=== PATIENT | female | born 1940 | race Caucasian/White ===

== ENCOUNTER 2020-08-02 23:37 | Inpatient (IN) | payer MEDICARE, SELFPAY ==
[2020-08-02 23:38] VITALS: BP 142/81; PULSE 108; RESP 18; TEMP 37; O2SAT 94; BMI 30.2
--- NOTE | 2020-08-02 23:45 | CTR_ITS ---
PROCEDURE INFORMATION: Exam: CT Head Without Contrast Exam date and time: 08/02/2020 12:40 AM Age: 80 years old Clinical indication: Altered mental status/memory loss; Additional info: AMS TECHNIQUE: Imaging protocol: Computed tomography of the head without contrast. Radiation optimization: All CT scans at this facility use at least one of these dose optimization techniques: automated exposure control; mA and/or kV adjustment per patient size (includes targeted exams where dose is matched to clinical indication); or iterative reconstruction. COMPARISON: No relevant prior studies available. RADIATION DOSE METRICS: Total DLP (mGy-cm): 857.66 FINDINGS: Brain: Moderate diffuse white matter disease likely reflects chronic microvascular ischemic changes. Cerebral ventricles: No ventriculomegaly. Bones/joints: Unremarkable. No acute fracture. Paranasal sinuses: Right maxillary sinus mild mucosal thickening. Mastoid air cells: Visualized mastoid air cells are well aerated. Soft tissues: Unremarkable. CT/CT head wo con* [id number] IMPRESSION: 1. Negative for intracranial hemorrhage or mass effect. 2. Moderate diffuse white matter disease likely reflects chronic microvascular ischemic changes. 3. Right maxillary sinus mild mucosal thickening. Radiation Dose CTDIVOL = (mGy): DLP = 857.66 (mGy-cm)
--- NOTE | 2020-08-02 23:45 | XRR_ITS ---
PROCEDURE INFORMATION: Exam: XR Chest, 1 View Exam date and time: 08/03/2020 12:04 AM Age: 80 years old Clinical indication: Fever; Prior surgery; Surgery type: Cardiac stents; Additional info: Fever, AMS TECHNIQUE: Imaging protocol: XR of the chest Views: 1 view. COMPARISON: No relevant prior studies available. FINDINGS: Lungs: Prominent interstitial markings with minimal ground-glass airspace opacities may reflect an evolving bronchopneumonia. Pleural space: Unremarkable. No pleural effusion. No pneumothorax. Heart/Mediastinum: Unremarkable. No cardiomegaly. Bones/joints: Unremarkable. XR/XR chest 1V portable [id number] IMPRESSION: Prominent interstitial markings with minimal ground-glass airspace opacities may reflect an evolving bronchopneumonia.
--- NOTE | 2020-08-02 23:46 | ECG_ITS ---
[facility] Test Date: 2020-08-03 Pat Name: Monique Boo Department: Room: Gender: Female Family Engagement Specialist: : 1940 Requested By: Jahaira Maki Order Number: [id number] Reading MD: ALEXANDRA WU Measurements Intervals [place] Rate: 106 P: 31 NC: 186 QRS: -47 QRSD: 109 T: 65 QT: 350 QTc: 467 Interpretive Statements SINUS TACHYCARDIA LEFT AXIS DEVIATION [QRS AXIS < -30] MODERATE VOLTAGE CRITERIA FOR LVH, CONSIDER NORMAL VARIANT [MEETS CRITERIA IN ONE OF: R(aVL), S(V1), R(V5), R(V5/V6)+S(V1)] ANTERIOR MYOCARDIAL INFARCTION , OF INDETERMINATE AGE [40+ ms Q WAVE AND/OR ST/T ABNORMALITY IN V3/V4] No previous ECG available for comparison Electronically Signed On 08-03-2020 18:16:51 GAME TRAPPER by ALEXANDRA WU [id number]
[2020-08-02 23:50] VITALS: BP 131/74; PULSE 107; O2SAT 93
[2020-08-03] VITALS (11 sets, daily range): BP systolic 127–183; BP diastolic 63–109; PULSE 81–110; RESP 17–22; TEMP 37–38.7; O2SAT 91–96
[2020-08-03] MEDS: sodium chloride 0.9% 1,000 ML 999 ML IV (00:08)
[2020-08-03 00:13] LABS: Basophils % 0.3 %; Eosinophils % 0.2 %; Hematocrit 43.2 % (37.0-47.0); Hemoglobin 14.3 g/dL (11.5-15.3); Lymphocytes % 7.3 %; Mean Corpuscular HGB Conc 33.1 g/dL (30.0-36.0); Mean Corpuscular Hemoglobin 30.6 pg (28.0-34.0); Mean Corpuscular Volume 92.5 fL (81-99); Monocytes # 0.7 10^3/uL (0.2-0.9); Monocytes % 5.3 %; Neutrophils # 11.77 10^3/uL (1.8-7.7); Neutrophils % 86.2 %; Nucleated Red Blood Cells % 0 %; Platelet Count 250 10^3/cmm (130-400); Red Blood Count 4.67 10^6/uL (4.1-5.3); Red Cell Distribution Width 12.7 % (12.1-15.1); White Blood Count 13.7 10^3/uL (4.0-10.0)
[2020-08-03 00:20] LABS: INR 1.09 (0.8-1.2)
[2020-08-03 00:25] LABS: Alanine Aminotransferase 31 U/L (0-33); Albumin Level 3.5 g/dL (3.5-5.2); Alkaline Phosphatase 59 IU/L (35-105); Anion Gap 18.1 (5-19); Aspartate Amino Transferase 29 U/L (0-32); Blood Urea Nitrogen 14 mg/dL (8-23); Calcium 9.5 mg/dL (8.5-10.5); Carbon Dioxide 22 mmol/L (22-29); Chloride 96 mmol/L (98-107); Creatinine Clr Calc Pharmacy 51.3518; Globulin 3.9 g/dL (1.3-4.6); Glucose 169 mg/dL (65-115); Lactate (Lactic Acid level) 1.6 mmol/L (0.5-2.2); Osmolality Calculated 278 mOsm/kg (285-295); Potassium 4.1 mmol/L (3.5-5.1); Sodium 132 mmol/L (136-145); Total Protein 7.4 g/dL (6.6-8.7)
--- NOTE | 2020-08-03 00:28 | W.ED.AMS ---
HPI - Altered Mental Status General: Chief Complaint: Altered Mental Status Stated Complaint: WEAKNESS AND CONFUSION Time Seen by Provider: 08/02/20 23:38 Source: EMS Mode of arrival: EMS Limitations: altered mental status History of Present Illness: HPI narrative: 80-year-old female who has a history of dementia that family states became increasingly altered and was unresponsive tonight. Patient here is only able to tell me her name and is quite confused. Patient does have some erythema and warmth to her left lateral leg. This is new today per family. She is afebrile. No known injuries. No focal weaknesses. Review of Systems General: Reports: ROS unobtainable due to mental status Physical Exam Const: COMMON NORMALS: negative for patient oriented x3 EXAM LIMITATIONS: altered mental status GENERAL APPEARANCE: ill appearing HENMT: COMMON NORMALS: normocephalic and atraumatic HEAD & SCALP: normocephalic and atraumatic Eye: COMMON NORMALS: Equal, round and reactive pupils present and EOMs intact bilaterally PUPIL: Yes Equal, round and reactive pupils present Neck/C-Spine: COMMON NORMALS: full ROM and supple Chest: COMMONS NORMALS: normal inspection of the chest and normal palpation of entire chest wall Resp: COMMON NORMALS: normal respiratory effort, No retractions, No use of accessory muscles and clear to auscultation bilaterally AUSCULTATION: clear to auscultation bilaterally Cardio: COMMON NORMALS: regular rate, regular rhythm and No murmurs present (Cardio) RATE: regular rate RHYTHM: regular rhythm GI: COMMON NORMALS: Normal to inspection, nondistended, normoactive bowel sounds present, Soft to palpation, non-tender and no masses PALPATION: Yes Soft to palpation Extremity: COMMON NORMALS: normal to inspection and full ROM NARRATIVE EXTREMITY EXAM: Cellulitis noted to the left lateral upper leg Neuro: COMMON NORMALS: moves all extremities and no focal motor deficits; negative for patient oriented x3 Psych: COMMON NORMALS: negative for mental status grossly normal Skin: COMMON NORMALS: no rashes or lesions noted and no wounds GENERAL SKIN EXAM: no rashes or lesions noted Course Vital Signs: Vital signs: Vital Signs Temperature 98.6 F 08/02/20 23:38 Pulse Rate 92 08/03/20 02:09 Respiratory Rate 18 08/03/20 02:09 Blood Pressure 152/76 08/03/20 02:09 Pulse Oximetry 94 08/03/20 02:09 MDM - Altered Mental Status MDM Narrative: Medical decision making narrative: Josselin presents here with altered mental status acutely. She has no signs of a CVA and her head CT is normal. Patient's urinalysis is normal. She does have a mildly elevated white count along with a cellulitis to her left leg likely causing her elevated white count. I believe this infection is likely causing her altered mental status as well. Patient started IV antibiotics and I spoke to hospitalist will admit. Lab Data: Labs: Lab Results 08/02/20 08/02/20 08/02/20 Range/Units 23:59 23:59 23:59 WBC 13.7 H (4.0-10.0) 10^3/ uL RBC 4.67 (4.1-5.3) 10^6/u L Hgb 14.3 (11.5-15.3) g/dL Hct 43.2 (37.0-47.0) % MCV 92.5 (81-99) fL MCH 30.6 (28.0-34.0) pg MCHC 33.1 (30.0-36.0) g/dL RDW 12.7 (12.1-15.1) % Plt Count 250 (130-400) 10^3/c mm MPV 9.0 (7.4-10.4) fL Neut % (Auto) 86.2 % Lymph % (Auto) 7.3 % Moffat % (Auto) 5.3 % Eos % (Auto) 0.2 % Baso % (Auto) 0.3 % Neut # (Auto) 11.77 H (1.8-7.7) 10^3/u L Lymph # (Auto) 1.0 (0.8-4.8) 10^3/u L Moffat # (Auto) 0.7 (0.2-0.9) 10^3/u L Eos # (Auto) 0.0 (0.0-0.8) 10^3/u L Baso # (Auto) 0.0 (0.0-0.1) 10^3/u L Nucleated RBC % (a uto) 0 % Nucleated RBCs # 0.0 /100WBC PT 14.50 (12.1-14.9) SECO NDS INR 1.09 (0.8-1.2) Sodium 132 L (136-145) mmol/L Potassium 4.1 (3.5-5.1) mmol/L Chloride 96 L (98-107) mmol/L Carbon Dioxide 22 (22-29) mmol/L Anion Gap 18.1 (5-19) BUN 14 (8-23) mg/dL Creatinine 0.7 (0.5-0.9) mg/dL GFR Calculation Not Reportable Glucose 169 H (65-115) mg/dL Calculated Osmolal ity 278 L (285-295) mOsm/k g Lactate (0.5-2.2) mmol/L Calcium 9.5 (8.5-10.5) mg/dL Total Bilirubin 1.0 (0.15-1.2) mg/dL AST 29 (0-32) U/L ALT 31 (0-33) U/L Alkaline Phosphata se 59 (35-105) IU/L Total Protein 7.4 (6.6-8.7) g/dL Albumin 3.5 (3.5-5.2) g/dL Globulin 3.9 (1.3-4.6) g/dL Urine Color (Yellow) Urine Appearance (CLEAR) Urine pH (5-7) Ur Specific Gravit y (1.005-1.030) Urine Protein (Negative) Urine Glucose (UA) (Normal) Urine Ketones (Negative) Urine Blood (Negative) Urine Nitrate (Negative) Urine Bilirubin (Negative) Urine Urobilinogen (Negative) mg/dL Ur Leukocyte Johanne ase (Negative) Urine RBC (0-2) /hpf Urine WBC (0-5) /hpf Ur Squamous Epith Cells (0-5) /hpf Amorphous Sediment Urine Bacteria (NONE) /hpf Urine Mucus /hpf 08/02/20 08/03/20 Range/Units 23:59 00:37 WBC (4.0-10.0) 10^3/ uL RBC (4.1-5.3) 10^6/u L Hgb (11.5-15.3) g/dL Hct (37.0-47.0) % MCV (81-99) fL MCH (28.0-34.0) pg MCHC (30.0-36.0) g/dL RDW (12.1-15.1) % Plt Count (130-400) 10^3/c mm MPV (7.4-10.4) fL Neut % (Auto) % Lymph % (Auto) % Moffat % (Auto) % Eos % (Auto) % Baso % (Auto) % Neut # (Auto) (1.8-7.7) 10^3/u L Lymph # (Auto) (0.8-4.8) 10^3/u L Moffat # (Auto) (0.2-0.9) 10^3/u L Eos # (Auto) (0.0-0.8) 10^3/u L Baso # (Auto) (0.0-0.1) 10^3/u L Nucleated RBC % (a uto) % Nucleated RBCs # /100WBC PT (12.1-14.9) SECO NDS INR (0.8-1.2) Sodium (136-145) mmol/L Potassium (3.5-5.1) mmol/L Chloride (98-107) mmol/L Carbon Dioxide (22-29) mmol/L Anion Gap (5-19) BUN (8-23) mg/dL Creatinine (0.5-0.9) mg/dL GFR Calculation Glucose (65-115) mg/dL Calculated Osmolal ity (285-295) mOsm/k g Lactate 1.6 (0.5-2.2) mmol/L Calcium (8.5-10.5) mg/dL Total Bilirubin (0.15-1.2) mg/dL AST (0-32) U/L ALT (0-33) U/L Alkaline Phosphata se (35-105) IU/L Total Protein (6.6-8.7) g/dL Albumin (3.5-5.2) g/dL Globulin (1.3-4.6) g/dL Urine Color Yellow (Yellow) Urine Appearance Clear (CLEAR) Urine pH 5 (5-7) Ur Specific Gravit y 1.020 (1.005-1.030) Urine Protein Trace (Negative) Urine Glucose (UA) Norm (Normal) Urine Ketones 1+ H (Negative) Urine Blood Neg (Negative) Urine Nitrate Negative (Negative) Urine Bilirubin 1+ H (Negative) Urine Urobilinogen 1 H (Negative) mg/dL Ur Leukocyte Johanne ase Negative (Negative) Urine RBC 0-4 H (0-2) /hpf Urine WBC 0-4 H (0-5) /hpf Ur Squamous Epith Cells 0-4 H (0-5) /hpf Amorphous Sediment Not Reportable Urine Bacteria Trace (NONE) /hpf Urine Mucus 2+ /hpf Imaging Data^: CXR: Attestation: I personally reviewed and interpreted this imaging study as follows: My impression: no acute abnormality CT Head: Attestation: I personally reviewed and interpreted this imaging study as follows: Radiologist's impression: [facility] [address] [place] [address] CT Scan Report Signed Patient: Monique Boo Unit #: [id number] : 1940 Age/Sex: 80 / F ADM Date: 08/02/20 Loc: ER Room/Bed: Attending Dr: Ordering Provider/Ordering MD: Jahaira Maki MD Date of Service: 08/02/20 Procedure(s): CT head wo con* [id number] Accession Number(s): [id number] Report Number: [id number] PROCEDURE INFORMATION: Exam: CT Head Without Contrast Exam date and time: 08/02/2020 12:40 AM Age: 80 years old Clinical indication: Altered mental status/memory loss; Additional info: AMS TECHNIQUE: Imaging protocol: Computed tomography of the head without contrast. Radiation optimization: All CT scans at this facility use at least one of these dose optimization techniques: automated exposure control; mA and/or kV adjustment per patient size (includes targeted exams where dose is matched to clinical indication); or iterative reconstruction. COMPARISON: No relevant prior studies available. RADIATION DOSE METRICS: Total DLP (mGy-cm): 857.66 FINDINGS: Brain: Moderate diffuse white matter disease likely reflects chronic microvascular ischemic changes. Cerebral ventricles: No ventriculomegaly. Bones/joints: Unremarkable. No acute fracture. Paranasal sinuses: Right maxillary sinus mild mucosal thickening. Mastoid air cells: Visualized mastoid air cells are well aerated. Soft tissues: Unremarkable. CT/CT head wo con* [id number] IMPRESSION: 1. Negative for intracranial hemorrhage or mass effect. 2. Moderate diffuse white matter disease likely reflects chronic microvascular ischemic changes. 3. Right maxillary sinus mild mucosal thickening. EKG Data^: EKG 1: Attestation: I personally reviewed and interpreted this EKG as follows: EKG interpretation date: 08/03/20 EKG interpretation time: 00:02 Interpretation: sinus tach hr [address] or t wave abnormalities qrs 109 qtc 412 Discharge Plan Discharge Patient Disposition: Admitted As Inpatient Clinical Impression: Altered mental status, Cellulitis Condition: Stable Coding Level of Care Code ED Fur Vault Attendant for Chg Fwd Exam Comprehensive
[2020-08-03 01:31] LABS: Urine Appearance Clear (CLEAR); Urine Color Yellow (Yellow); pH Urine 5 (5-7)
[2020-08-03 01:32] LABS: Add Urine Microscopic? YES; Bilirubin Urine 1+ (Negative); Blood Urine Neg (Negative); Glucose Urine UA Norm (Normal); Ketones Urine 1+ (Negative); Leukocyte Esterase Urine Negative (Negative); Nitrate Urine Negative (Negative); Protein Urine Trace (Negative); Urobilinogen Urine 1 mg/dL (Negative)
[2020-08-03 01:39] LABS: RBC Urine 0-4 /hpf (0-2); Squamous Epithelial Cell Urine 0-4 /hpf (0-5); WBC Urine 0-4 /hpf (0-5)
[2020-08-03 01:40] LABS: Add Urine Culture? No; Bacteria Urine TRACE /hpf; Mucus Urine 2+ /hpf
[2020-08-03] MEDS: vancomycin 1,000 MG in sodium chloride 0.9% 250 ML 250 MG IV (01:45)
--- NOTE | 2020-08-03 02:49 | CTR_ITS ---
PROCEDURE INFORMATION: Exam: CT Left Lower Extremity With Contrast; Thigh Exam date and time: 08/03/2020 3:21 AM Age: 80 years old Clinical indication: Thigh; Left; Patient HX: Cellulitis to lateral aspect of hip and entire femur. TECHNIQUE: Imaging protocol: CT of the Left lower extremity with intravenous contrast was performed. Exam focused on the thigh. Radiation optimization: All CT scans at this facility use at least one of these dose optimization techniques: automated exposure control; mA and/or kV adjustment per patient size (includes targeted exams where dose is matched to clinical indication); or iterative reconstruction. Contrast material: OMNI 300; Contrast volume: 95 ml; Contrast route: INTRAVENOUS (IV); COMPARISON: No relevant prior studies available. RADIATION DOSE METRICS: Total DLP (mGy-cm): 1241.4 FINDINGS: Bones/joints: Normal. No acute fracture or dislocation. Soft tissues: Strandy and hazy low attenuation is seen in the subcutaneous and fascia the left thigh posterolaterally, findings that may represent edematous or inflammatory changes. Cellulitis cannot be entirely excluded. CT/CT lower leg LT w con [id number] IMPRESSION: Diffuse hazy in strandy opacities are seen in the subcutaneous fat and fascia of the left thigh posterolaterally, findings could represent edematous or inflammatory changes. Cellulitis cannot be excluded. Radiation Dose CTDIVOL = (mGy): DLP = 1241.4 (mGy-cm)
[2020-08-03] MEDS: iohexol 300 mg/mL 100 mL Btl IV (03:46)
--- NOTE | 2020-08-03 04:14 | PM.HP ---
Providers/Chief Complaint Admitting Physician: Morelia Patel MD Primary Care Provider: Gretchen Sanon MD Chief Complaint: WEAKNESS AND CONFUSION History of Present Illness Monique Boo is a 80 year old female who carries history of coronary disease, hypertension and diabetes presented today with chief complaint of altered mental status. 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 Her daughter has not noticed any vomiting, fever, loss of consciousness or seizure-like activities. She was brought to the hospital for further evaluation 1 today she noticed rash on her left thigh. EMS was called. En route to the hospital she had 1 episode of emesis, she was saturating well, afebrile dynamically stable, she has been constipated for last few days as well. Diagnostics in the ER revealed sepsis, criteria met with tachycardia and leukocytosis, her chest x-ray showing evolving pneumonia, left leg cellulitis, CT of lower extremity did not reveal any gas gangrene or necrotizing fasciitis. As per the daughter this skin rash just developed today it was not present yesterday, she also has a skin abrasion around right sacral area, it is not an open wound, normal UA Review of Systems Const: Denies: fever(s) or chills Eyes: Denies: change in vision ENMT: Denies: throat pain Card: Denies: chest pain Resp: Denies: dyspnea GI: Denies: abdominal pain : Denies: flank pain Musc: Denies: neck pain Skin/Breast: Reports: new lesions Neuro: Reports: confusion and difficulty communicating thoughts Psych: Reports: memory loss; Denies: anxiety Endo: Denies: polyuria Mat/Lymph: Denies: easy bruising All/Imm: Denies: urticaria Medications/Allergies Home Medications Medication Instructions Recorded Confirmed Last Taken Type atorvastatin 08/03/20 Unknown History clopidogrel 08/03/20 08/03/20 Unknown History ergocalciferol (vitamin D2) 08/03/20 08/03/20 Unknown History [Vitamin D2] glipizide mg 08/03/20 08/03/20 Unknown History levetiracetam PO 08/03/20 08/03/20 Unknown History levothyroxine [Euthyrox] 08/03/20 08/03/20 Unknown History losartan 08/03/20 08/03/20 Unknown History metformin mg 08/03/20 Unknown History metformin mg 08/03/20 08/03/20 Unknown History metoprolol tartrate 08/03/20 08/03/20 Unknown History mirtazapine mg 08/03/20 08/03/20 Unknown History sitagliptin [Januvia] mg 08/03/20 08/03/20 Unknown History sitagliptin [Januvia] mg 08/03/20 08/03/20 Unknown History PFSH Acute PFSH: Medical History (Updated 08/03/20 @ 04:48 by Morelia Patel MD) Coronary artery disease Diabetes Dyslipidemia Hypertension Seizure disorder Surgical History (Updated 08/03/20 @ 04:31 by Morelia Patel MD) H/O thyroidectomy H/O: hysterectomy Stented coronary artery Family History (Updated 08/03/20 @ 04:31 by Morelia Patel MD) Other Family history non-contributory Social History (Updated 08/03/20 @ 04:32 by Morelia Patel MD) Smoking and tobacco status: never smoked Alcohol intake: never Substance/Drug Use: never Household members: family Housing: House Vitals/I&O/Wt Last Vital Signs Temp 98.6 F 08/02/20 23:38 Pulse 109 H 08/03/20 04:06 Resp 22 H 08/03/20 03:45 BP 127/109 08/03/20 04:06 Pulse Ox 95 08/03/20 04:06 08/02/20 08/02/20 08/03/20 14:59 22:59 06:59 Intake Total 1250 / 1250 Balance 1250 / 1250 Weight last 48 hrs Weight 74.843 kg Physical Exam Narrative: EXAM NARRATIVE: Pleasant elderly female She responded very well to my verbal commands, she is verbally redirectable She is able to answer my questions in simple answers mostly yes and no No gaze preference No focal deficit she is able to move her upper and lower extremities without any limitations grade 3/5 strength grossly no acute neurological deficit noted S1, S2 sinus tachycardia No active signs of heart failure Ventral hernia, abdomen soft, distended central obesity distended bowel sounds present Lower extremity no edema gangrene ulcer She is awake but only oriented to herself Skin abrasion of right buttocks area without sacral ulcer Hyperemia with cellulitis around her waistline extending up to left thigh way up to her knee, no active purulent drainage, erythematous, tender skin Bilateral feet without any active skin ulcer or gangrene No herpes vesicles noted Data : 08/02/20 23:59 08/02/20 23:59 Micro: Microbiology 08/02/20 01:32 Blood Culture - Preliminary Blood SPECIMEN COLLECTED 08/02/20 01:32 Blood Culture - Preliminary Blood SPECIMEN COLLECTED A&P Assessment and plan (1) Altered mental status: Status: Acute (2) Cellulitis: Status: Acute Additional A&P Information Nonpurulent cellulitis Concern for progressive cellulitis, skin rash which has progressed in a short amount of time extending from her baseline to left thigh went up to her left knee No active purulent drainage, patient has been afebrile, I do not see any open wound around sacral area however has right buttocks skin abrasion with mild bleeding, Considering history of diabetes I will start her on vancomycin and Zosyn CT of leg requested to rule out gas gangrene and necrotizing fasciitis however no crepitation on clinical exam Altered mental status Daughter is endorsing that 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 for which she is taking Keppra I would check her Keppra level before loading her with antiepileptic medication At the time my evaluation patient was able to follow my commands verbally, however she was only oriented to herself, she was able to tell me her month of , she was able to sit up on verbal command, squeeze my fingers and hold her legs in the air for 5 seconds, I do not suspect meningitis at this point, suspicion for status epileptiform nonconvulsive seizures, will give her Ativan 0.5 mg IV push, if her mentation deteriorates we will transfer her to ICU and request EEG Sepsis secondary to cellulitis Criteria met with tachycardia and leukocytosis Lactic acid 1.6, Currently on vancomycin and Zosyn along maintenance fluid rate Type 2 diabetes: I will keep her on low-dose insulin sliding Hold Metformin Hypertension: Continue losartan Hypothyroidism: Check TSH, continue levothyroxine 175 mcg Goals of care discussed with daughter: Patient is DNR/DNI Cardiac/consistent carb diet DVT prophylaxis Lovenox Attestations Medical Necessity Statement*: Anticipating stay in the hospital course more than 2 midnights continued IV antibiotics for sepsis secondary to cellulitis, check Keppra level rule out nonepileptiform seizure activity Time Spent in Patient Care: (>than 50% of time spent in counselling and/or direct pt care on unit). 50mins Coding Level of Care Code Acute Sales Consulting Director for Dulceg Fwd Diagnoses Altered mental status R41.82 Cellulitis L03.90
--- NOTE | 2020-08-03 05:30 | PC.PHAR ---
Vancomycin is dosed at 1500mg IVPB every 24 hours to produce a predicted trough level of 15.03 (population based pharmacokinetic analysis). A trough level has been ordered from the lab to be obtained before the fourth dose to confirm and adjust if needed. The Zosyn is dosed at 3.375gm IVPB every 8 hours on basis of the creatinine clearance of 51.3518.
[2020-08-03] MEDS: sodium chloride 0.9% 1,000 ML 75 ML IV ×2 (05:34→18:28)
[2020-08-03] MEDS: LORazepam 2 mg/mL INJ 1 mL 0.5 MG IVP (05:35)
[2020-08-03] MEDS: enoxaparin 40 mg/0.4 mL Syringe SUBCUT (05:35)
[2020-08-03] MEDS: levothyroxine 75 mcg Tablet 150 MCG PO (05:35)
[2020-08-03] MEDS: piperacillin-tazobactam 3.375 GM in sodium chloride 0.9% (plus) 50 ML IV ×3 (05:46→21:04)
[2020-08-03 05:57] LABS: Procalcitonin 0.08 ng/mL (0-0.5); Prolactin 19.08 ng/mL (4.8-23.3)
[2020-08-03 06:55] LABS: Glucose Point of Care 117 mg/dL (70-110)
--- NOTE | 2020-08-03 08:55 | USR_ITS ---
PROCEDURE INFORMATION: Exam: US Duplex Left Lower Extremity Veins, Limited Exam date and time: 08/03/2020 11:24 AM Age: 80 years old Clinical indication: Pain; Leg, upper; Left; Additional info: Assess for vte TECHNIQUE: Imaging protocol: Real-time Duplex ultrasound of the Left Lower Extremity with 2-D cai scale, color Doppler flow and spectral waveform analysis with image documentation. Limited exam focused on the left lower extremity veins. COMPARISON: No relevant prior studies available. FINDINGS: Left deep veins: Unremarkable. The common femoral, femoral, proximal profunda femoral, popliteal, and visualized calf veins are patent without thrombus. Normal Doppler waveforms. Normal compressibility and/or augmentation response. Left superficial veins: Unremarkable. Saphenofemoral junction is patent without thrombus. Soft tissues: Mild subcutaneous edema noted in the calf and popliteal area. No discrete fluid collection. US/CV venous duplex [facility] [id number] IMPRESSION: No evidence of deep vein thrombosis.
[2020-08-03] MEDS: metoprolol tartrate 25 mg Tablet PO ×2 (09:22→21:00)
[2020-08-03] MEDS: clopidogrel 75 mg Tablet PO (09:22)
[2020-08-03] MEDS: lisinopril 10 mg Tablet PO (09:22)
[2020-08-03 10:53] LABS: SARS Covid-2 Antigen Negative (Negative)
[2020-08-03 11:03] LABS: Glucose Point of Care 190 mg/dL (70-110)
[2020-08-03 16:55] LABS: Glucose Point of Care 139 mg/dL (70-110)
--- NOTE | 2020-08-03 19:07 | PM.PN ---
Subjective Subjective: Interval history: She is awake, cooperative, appears comfortable. Denies any discomfort, although he is also not oriented. When asked about her location says she is at school. Does not remember what year it is currently. Denies any pain or any complaints. Vitals/I&O/Wt Last Vital Signs Temp 100.3 F H 08/03/20 16:00 Pulse 82 08/03/20 16:00 Resp 17 08/03/20 16:00 BP 157/73 08/03/20 16:00 Pulse Ox 94 08/03/20 16:00 08/03/20 08/03/20 08/03/20 06:59 14:59 22:59 Intake Total 1250 / 1250 410 / 410 967.5 / 1377.5 Balance 1250 / 1250 410 / 410 967.5 / 1377.5 Weight last 48 hrs Weight 74.843 kg Physical Exam Const: COMMON NORMALS: no acute distress and alert; negative for patient oriented x3 GENERAL APPEARANCE: cooperative ORIENTATION/CONSCIOUSNESS: Yes awake OTHER: Calm HENMT: COMMON NORMALS: oropharynx normal Neck/C-Spine: COMMON NORMALS: no JVD Resp: COMMON NORMALS: normal respiratory effort and clear to auscultation bilaterally AUSCULTATION: clear to auscultation bilaterally Cardio: COMMON NORMALS: no JVD, regular rhythm, S1 normal heart sound present, S2 normal heart sound present and No murmurs present (Cardio) RHYTHM: regular rhythm HEART SOUNDS: S1 normal heart sound present and S2 normal heart sound present GI: COMMON NORMALS: Normal to inspection, nondistended, normoactive bowel sounds present, Soft to palpation and non-tender PALPATION: Yes Soft to palpation Extremity: COMMON NORMALS: no joint enlargement and no pedal edema OTHER: Erythema and soft tissue edema of large part of posterior left thigh Neuro: COMMON NORMALS: moves all extremities; negative for patient oriented x3 SENSORIUM/ORIENTATION: Yes alert Skin: COMMON NORMALS: no rashes or lesions noted GENERAL SKIN EXAM: no rashes or lesions noted Data : 08/02/20 23:59 08/02/20 23:59 Micro: Microbiology 08/02/20 01:32 Blood Culture - Preliminary Blood SPECIMEN COLLECTED 08/02/20 01:32 Blood Culture - Preliminary Blood SPECIMEN COLLECTED A&P Assessment and plan (1) Altered mental status: Suspected septic encephalopathy secondary to cellulitis, sepsis. Treat infection. Supportive care. Status: Acute (2) Cellulitis: Cellulitis of left thigh, with sepsis, leukocytosis, fever. Acute encephalopathy. Continue Zosyn and vancomycin. Assist with duplex ultrasound of left leg, without finding of DVT. Status: Acute (3) Pneumonia: Noted prominent interstitial markings with minimal groundglass airspace opacities, possibly reflecting evolving bronchopneumonia. Rapid COVID-19 negative. Send out PCR pending. Maintain isolation. Saturating well on room air. We will discontinue IV fluid for now, attempt to avoid fluid overload. Status: Acute Additional A&P Information Sepsis, fever: Secondary to cellulitis, pneumonia, possible sepsis. As above. Assess for COVID-19. Right buttocks skin abrasion with mild bleeding, History of seizures: Keppra level pending. She is awake, alert, cooperative, but confused. No seizure-like activity noted at this time. Will treat underlying infections as above. Monitor. Type 2 diabetes: I will keep her on low-dose insulin sliding Hold Metformin Hypertension: Continue losartan Hypothyroidism: continue levothyroxine 175 mcg Attestations Medical Necessity Statement*: Continue admission for assessment management of sepsis, septic encephalopathy, cellulitis, pneumonia.. 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
[2020-08-03 20:52] LABS: Glucose Point of Care 127 mg/dL (70-110)
[2020-08-03] MEDS: acetaminophen 325 mg Tablet PO (20:59)
[2020-08-03] MEDS: atorvastatin 40 mg Tablet 20 MG PO (21:00)
[2020-08-04] VITALS (7 sets, daily range): BP systolic 125–182; BP diastolic 62–86; PULSE 55–109; RESP 16–20; TEMP 36.4–37.1; O2SAT 93–96
[2020-08-04] MEDS: vancomycin 1,500 MG/300 ML PIGGYBACK 150 MG IV (01:24)
[2020-08-04] MEDS: piperacillin-tazobactam 3.375 GM in sodium chloride 0.9% (plus) 50 ML IV ×3 (04:13→21:25)
[2020-08-04] MEDS: enoxaparin 40 mg/0.4 mL Syringe SUBCUT (04:14)
[2020-08-04] MEDS: levothyroxine 75 mcg Tablet 150 MCG PO (05:27)
[2020-08-04 05:47] LABS: Basophils % 0.4 %; Eosinophils # 0.3 10^3/uL (0.0-0.8); Eosinophils % 3.6 %; Hematocrit 38.3 % (37.0-47.0); Hemoglobin 12.7 g/dL (11.5-15.3); Lymphocytes # 1.3 10^3/uL (0.8-4.8); Lymphocytes % 13.7 %; Mean Corpuscular HGB Conc 33.2 g/dL (30.0-36.0); Mean Corpuscular Hemoglobin 30.9 pg (28.0-34.0); Mean Corpuscular Volume 93.2 fL (81-99); Mean Platelet Volume 9.5 fL (7.4-10.4); Monocytes # 0.7 10^3/uL (0.2-0.9); Neutrophils # 6.72 10^3/uL (1.8-7.7); Neutrophils % 73.6 %; Nucleated Red Blood Cells % 0 %; Platelet Count 227 10^3/cmm (130-400); Red Blood Count 4.11 10^6/uL (4.1-5.3); Red Cell Distribution Width 12.8 % (12.1-15.1); White Blood Count 9.1 10^3/uL (4.0-10.0)
[2020-08-04 06:00] LABS: Anion Gap 11.6 (5-19); Blood Urea Nitrogen 11 mg/dL (8-23); Carbon Dioxide 25 mmol/L (22-29); Chloride 98 mmol/L (98-107); Creatinine Clr Calc Pharmacy 51.3518; Glucose 125 mg/dL (65-115); Osmolality Calculated 273 mOsm/kg (285-295); Potassium 3.6 mmol/L (3.5-5.1); Sodium 131 mmol/L (136-145)
[2020-08-04 06:29] LABS: Glucose Point of Care 117 mg/dL (70-110)
[2020-08-04] MEDS: lisinopril 10 mg Tablet PO ×2 (08:28→15:55)
[2020-08-04] MEDS: metoprolol tartrate 25 mg Tablet PO ×2 (08:28→21:26)
[2020-08-04] MEDS: clopidogrel 75 mg Tablet PO (08:28)
[2020-08-04 10:39] LABS: Glucose Point of Care 175 mg/dL (70-110)
--- NOTE | 2020-08-04 15:17 | P.PN_ITS ---
Subjective Subjective: Interval history: She is awake and alert, pleasant and coopearative, although with baseline dementia is not oriented to place or year, and is unsure why she is currently in the hospital. She denies any pain or discomfort, however, denies any pain in her left thigh (apart from the palpation tenderness over the skin during examination). Denies any shortness of breath. Denies chest pain or pressure. Has no abdominal discomfort or any other complaints. Vitals/I&O/Wt Last Vital Signs Temp 97.5 F L 08/04/20 12:00 Pulse 76 08/04/20 12:00 Resp 16 08/04/20 12:00 BP 161/77 08/04/20 12:00 Pulse Ox 94 08/04/20 12:00 08/04/20 08/04/20 08/04/20 06:59 14:59 22:59 Intake Total 50 / 1477.5 530 / 530 Balance 50 / 1477.5 530 / 530 Weight last 48 hrs Weight 74.843 kg Physical Exam Const: COMMON NORMALS: no acute distress and alert; negative for patient oriented x3 GENERAL APPEARANCE: cooperative ORIENTATION/CONSCIOUSNESS: Yes awake OTHER: Calm. She is pleasant, conversant. HENMT: COMMON NORMALS: oropharynx normal Neck/C-Spine: COMMON NORMALS: no JVD Resp: COMMON NORMALS: normal respiratory effort and clear to auscultation bilaterally AUSCULTATION: clear to auscultation bilaterally Cardio: COMMON NORMALS: no JVD, regular rhythm, S1 normal heart sound present, S2 normal heart sound present and No murmurs present (Cardio) RHYTHM: regular rhythm HEART SOUNDS: S1 normal heart sound present and S2 normal heart sound present GI: COMMON NORMALS: Normal to inspection, nondistended, normoactive bowel sounds present, Soft to palpation and non-tender PALPATION: Yes Soft to palpation Extremity: COMMON NORMALS: no joint enlargement and no pedal edema OTHER: Erythema and soft tissue edema of large part of posterior left thigh with improvement compared to yesterday. Tender on palpation. Neuro: COMMON NORMALS: moves all extremities; negative for patient oriented x3 SENSORIUM/ORIENTATION: Yes alert Skin: COMMON NORMALS: no rashes or lesions noted GENERAL SKIN EXAM: no rashes or lesions noted Data : 08/04/20 05:13 08/04/20 05:13 Micro: Microbiology 08/03/20 00:37 Urine Culture - Preliminary Urine Catheterized 08/02/20 01:32 Blood Culture - Preliminary Blood NEGATIVE TO DATE 08/02/20 01:32 Blood Culture - Preliminary Blood NEGATIVE TO DATE A&P Assessment and plan (1) Altered mental status: This appears to have resolved. She is not oriented to place or year, however, I discussed today with her daughter, and this appears to be her baseline at home. She does have underlying dementia. She denies any visual or auditory hallucination. Suspected septic encephalopathy secondary to cellulitis, sepsis. Treat infection. Supportive care. Status: Acute (2) Cellulitis: Quite large area of cellulitis over posterior left thigh. Continue treatment with antibiotics IV at this time, if continue to show improvement, may transition to oral antibiotic and return home possibly within the next 1-2 days. Last fever last night around 11 PM. Sepsis otherwise appears to be resolving. Duplex ultrasound of left leg, without finding of DVT. Status: Acute (3) Pneumonia: Noted prominent interstitial markings with minimal groundglass airspace opacities, possibly reflecting evolving bronchopneumonia. Rapid COVID-19 negative. PCR testing is pending. Maintain isolation. Her oxygenation has been good on room air. She denies any shortness of breath or difficulties breathing. With possible bacterial pneumonia at this time continue antibiotic treatment. Follow blood cultures. Avoid fluid overload. Status: Acute Additional A&P Information Sepsis, fever: Resolving. Secondary to cellulitis, pneumonia. As above. Assess for COVID-19. Right buttocks skin abrasion with mild bleeding, History of seizures: Keppra level pending. She is awake, alert, cooperative, but confused. No seizure-like activity noted at this time. Will treat u nderlying infections as above. Monitor. Type 2 diabetes: low-dose insulin sliding scale Hold Metformin Hypertension: Blood pressure up as high as 182/84 today. Continue lisinopril. Will give extra dose today. Monitor blood pressures. Will not increase beta- ghada for now, noted episode of heart rate 55 bpm last night. Hypothyroidism: continue levothyroxine 175 mcg Attestations Medical Necessity Statement*: Continue admission for assessment of improving sepsis due to cellulitis, pneumonia, assessment for COVID-19, optimization of hypertension, with possible discharge home within the next 1-2 days. 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
--- NOTE | 2020-08-04 15:38 | PC.NURSE ---
Notified Dr Kamara that patient's manual blood pressure is 182/84.
--- NOTE | 2020-08-04 15:48 | PC.NURSE ---
Rcvd message from Dr Kamara that he will put orders in for blood pressure medications.
[2020-08-04 16:39] LABS: Glucose Point of Care 140 mg/dL (70-110)
--- NOTE | 2020-08-04 17:28 | PC.NURSE ---
notified Dr Kamara that patient has open area to buttock and rash to thighs and legs.
[2020-08-04 20:13] LABS: Glucose Point of Care 210 mg/dL (70-110)
[2020-08-04] MEDS: atorvastatin 40 mg Tablet 20 MG PO (21:25)
[2020-08-04] MEDS: levETIRAcetam 500 mg Tablet 250 MG PO (21:25)
[2020-08-05] VITALS (7 sets, daily range): BP systolic 136–185; BP diastolic 70–96; PULSE 83–95; RESP 18–19; TEMP 36.4–37.3; O2SAT 91–96
[2020-08-05] MEDS: vancomycin 1,500 MG/300 ML PIGGYBACK 150 MG IV (02:59)
[2020-08-05] MEDS: levothyroxine 75 mcg Tablet 150 MCG PO (05:30)
[2020-08-05] MEDS: enoxaparin 40 mg/0.4 mL Syringe SUBCUT (05:30)
[2020-08-05 05:31] LABS: Basophils % 0.3 %; Eosinophils # 0.4 10^3/uL (0.0-0.8); Eosinophils % 5.8 %; Hematocrit 38.1 % (37.0-47.0); Lymphocytes # 1.2 10^3/uL (0.8-4.8); Lymphocytes % 16.4 %; Mean Corpuscular HGB Conc 34.1 g/dL (30.0-36.0); Mean Corpuscular Hemoglobin 30.2 pg (28.0-34.0); Mean Corpuscular Volume 88.4 fL (81-99); Mean Platelet Volume 9.3 fL (7.4-10.4); Monocytes # 0.6 10^3/uL (0.2-0.9); Monocytes % 9.1 %; Neutrophils # 4.81 10^3/uL (1.8-7.7); Nucleated Red Blood Cells % 0 %; Platelet Count 268 10^3/cmm (130-400); Red Blood Count 4.31 10^6/uL (4.1-5.3); Red Cell Distribution Width 12.2 % (12.1-15.1); White Blood Count 7.1 10^3/uL (4.0-10.0)
[2020-08-05] MEDS: piperacillin-tazobactam 3.375 GM in sodium chloride 0.9% (plus) 50 ML IV ×2 (05:31→12:33)
[2020-08-05 06:01] LABS: Alanine Aminotransferase 88 U/L (0-33); Albumin Level 3.4 g/dL (3.5-5.2); Alkaline Phosphatase 72 IU/L (35-105); Anion Gap 16.2 (5-19); Aspartate Amino Transferase 76 U/L (0-32); Blood Urea Nitrogen 6 mg/dL (8-23); Calcium 9.1 mg/dL (8.5-10.5); Carbon Dioxide 24 mmol/L (22-29); Chloride 98 mmol/L (98-107); Creatinine Clr Calc Pharmacy 51.3518; Glucose 129 mg/dL (65-115); Osmolality Calculated 279 mOsm/kg (285-295); Potassium 3.2 mmol/L (3.5-5.1); Sodium 135 mmol/L (136-145); Total Bilirubin 0.6 mg/dL (0.15-1.2)
[2020-08-05 06:37] LABS: Glucose Point of Care 120 mg/dL (70-110)
[2020-08-05] MEDS: clopidogrel 75 mg Tablet PO (08:38)
[2020-08-05] MEDS: aspirin 81 mg EC Tablet PO (08:38)
[2020-08-05] MEDS: lisinopril 10 mg Tablet PO (08:39)
[2020-08-05] MEDS: levETIRAcetam 500 mg Tablet 250 MG PO ×2 (08:39→21:43)
[2020-08-05] MEDS: metoprolol tartrate 25 mg Tablet PO ×2 (08:40→21:44)
[2020-08-05 10:05] LABS: Glucose Point of Care 197 mg/dL (70-110)
--- NOTE | 2020-08-05 11:07 | PC.NURSE ---
updated pts daughter on pt.
--- NOTE | 2020-08-05 12:41 | CT_ITS ---
WS: [id number] CT CHEST TECHNIQUE: Noncontrast CT of the chest with coronal and sagittal reformatted images. CLINICAL INFORMATION: copd/pna COMPARISON: None. DLP: 842.[address] scans at [facility] use at least one of these dose optimization techniques: automat ed exposure control; mA and/or kV adjustment per patient size (includes targeted exams where dose is matched to clinical indication); or iterative reconstruction. FINDINGS: Moderate chronic emphysematous changes. No focal consolidation or pleural fluid. Cardiomegaly. Calcif ied granuloma right lower lobe. Calcified right hilar lymph nodes. Vascular calcification including c oronary. Small esophageal hiatal hernia. Slight hazy atelectasis in the lung bases. Small noncalcified subpleural nodule right lower lobe brandan uring 4 mm. Hypertrophic changes thoracic spine. No axillary lymphadenopathy. Adrenal glands are normal. CT/CT chest wo con [id number] IMPRESSION: 1. Moderate chronic emphysematous changes. 2. No acute appearing pulmonary infiltrates. Slight atelectasis in the lung ba ses. 3. Noncalcified subpleural nodule right lower lobe measuring 4 mm. Recommend 6 -12 month follow-up. 4. Small esophageal hiatal hernia. 5. Vascular calcification including coronary. 6. Cardiomegaly.
[2020-08-05 14:01] LABS: Thyroid Stimulating Hormone 3.69 uIU/mL (0.27-4.20)
[2020-08-05 14:02] LABS: Procalcitonin 0.09 ng/mL (0-0.5)
[2020-08-05 14:29] LABS: Coronavirus Test Green County Not Detected
[2020-08-05] MEDS: potassium chloride ER 20 mEq Tablet 40 MEQ PO (14:33)
[2020-08-05] MEDS: cephALEXin 500 mg Capsule PO ×2 (14:34→21:44)
--- NOTE | 2020-08-05 14:50 | PC.NURSE ---
patient is negative for COVID. asked Dr Geiger if we can discontinue isolation order. Per Dr Geiger, ok to discontinue isolation order. web content writer discontinued isolation order.
[2020-08-05 15:49] LABS: Globulin 3.1 g/dL (1.3-4.6); Total Protein 6.5 g/dL (6.6-8.7)
--- NOTE | 2020-08-05 16:26 | PM.PN ---
Subjective Subjective: Interval history: Hospital course, labs and vitals noted. On examination she is still sitting comfortably in bed, cooperative. She is oriented to self, knows she is in the hospital but not sure which city, not oriented to year, date or the president but this seems to be her baseline given baseline dementia. Has remained hemodynamically stable and afebrile in last 24 hours with last temp of 100.3 Fahrenheit more than 36 hours ago. Vitals/I&O/Wt Last Vital Signs Temp 98.1 F 08/05/20 15:12 Pulse 86 08/05/20 15:12 Resp 18 08/05/20 15:12 BP 178/85 08/05/20 15:12 Pulse Ox 94 08/05/20 15:12 08/05/20 08/05/20 08/05/20 06:59 14:59 22:59 Intake Total 50 / 730 470 / 470 Balance 50 / 730 470 / 470 Physical Exam Narrative: EXAM NARRATIVE: General: No acute distress, AO x 1-2 HEENT: PERRLA, pupils bilaterally equal and reactive Chest: Normal vesicular breath sounds, no added sounds, equal good air entry bilaterally CVS: S1-S2 regular, no murmurs, no tachycardia, no gallops, no rubs Abdomen: Soft, nontender, no organomegaly, bowel sounds present Neuro: No focal deficits, no facial deformity, moving all limbs, AO x1-2. Extremities: Erythematous tender to palpation rash present on the left posterior thigh with 3 superficial anna size ulcers without any sloughing or foul smell. Data : 08/05/20 05:13 08/05/20 05:13 Micro: Microbiology 08/03/20 00:37 Urine Culture - Final Urine Catheterized A&P Assessment and plan (1) Altered mental status: This appears to have resolved. She is not oriented to place or year, however, as per daughter this is her baseline because of underlying dementia. She denies any visual or auditory hallucination. On admission suspected septic encephalopathy secondary to cellulitis, sepsis. Plan is to treat infection and supportive care including frequent reorientation. Patient has history of seizures in the past and takes Keppra as an outpatient. As per the family patient has not had recent seizure-like activity. Keppra level pending. For now continue with Keppra at home dose. Check TSH, vitamin B12, folate levels. No electrode normality on the BMP. Status: Acute (2) Cellulitis: Seems to be resolving. Patient has remained afebrile, resolving leukocytosis. Has been on vancomycin and Zosyn since admission. We will switch over to Keflex and doxycycline for now and monitor for next 24 hours. Check MRSA swab if negative can discontinue doxycycline on discharge. Patient continues to remain hemodynamically stable and afebrile in next 24 hours can plan to discharge on oral antibiotics. Dressing of open superficial ulcers with [employer]. Duplex ultrasound of left leg, without finding of DVT. Status: Acute (3) Pneumonia: Possible, noted to have prominent interstitial marking with possible bronchopneumonia. COVID-19 rapid antigen and PCR negative. Stop isolation precautions. Oxygen supplementation keeping saturation over 90%. Low suspicion of pneumonia for now. Monitor fluid status. Status: Acute Additional A&P Information Type 2 diabetes: low-dose insulin sliding scale Hold oral hypoglycemics. Hypertension: Blood pressure continues to remain elevated. Continue with home dose of losartan and metoprolol. Will add amlodipine 10 mg daily for now. Goal blood pressure less than 140/90 mmHg. Hypothyroidism: continue levothyroxine 175 mcg DNR/DNI. Lovenox for DVT prophylaxis. Diabetic cardiac diet. Attestations Medical Necessity Statement*: Patient requires further hospitalization for management of cellulitis leading to altered mental status. Time Spent in Patient Care: Greater than 35 minutes (>than 50% of time spent in counselling and/or direct pt care on unit). Coding Level of Care Code Acute Assistant Child Care Teacher for [facility] Diagnoses Altered mental status R41.82 Cellulitis L03.90 Pneumonia J18.9
[2020-08-05] MEDS: doxycycline 100 mg Tablet PO (16:39)
[2020-08-05] MEDS: amlodipine 10 mg Tablet PO (16:39)
[2020-08-05 17:18] LABS: Glucose Point of Care 143 mg/dL (70-110)
[2020-08-05 20:20] LABS: Glucose Point of Care 184 mg/dL (70-110)
[2020-08-05] MEDS: losartan 50 mg Tablet 100 MG PO (21:43)
[2020-08-05] MEDS: mirtazapine 15 mg Tablet PO (21:44)
[2020-08-05] MEDS: atorvastatin 40 mg Tablet 20 MG PO (21:44)
[2020-08-06] VITALS: BP 166/81; PULSE 72; RESP 18; TEMP 36.7; O2SAT 94
[2020-08-06 02:03] LABS: Vitamin B12 209 pg/mL (232-1245)
[2020-08-06 04:00] VITALS: BP 147/76; PULSE 66; RESP 18; TEMP 36.5; O2SAT 95
[2020-08-06 06:02] LABS: Basophils % 0.4 %; Eosinophils # 0.6 10^3/uL (0.0-0.8); Eosinophils % 7.9 %; Hematocrit 40.9 % (37.0-47.0); Hemoglobin 13.6 g/dL (11.5-15.3); Lymphocytes # 1.8 10^3/uL (0.8-4.8); Lymphocytes % 25.1 %; Mean Corpuscular HGB Conc 33.3 g/dL (30.0-36.0); Mean Corpuscular Hemoglobin 30.4 pg (28.0-34.0); Mean Corpuscular Volume 91.3 fL (81-99); Mean Platelet Volume 9.1 fL (7.4-10.4); Monocytes # 0.8 10^3/uL (0.2-0.9); Monocytes % 10.8 %; Neutrophils # 3.92 10^3/uL (1.8-7.7); Nucleated Red Blood Cells % 0 %; Platelet Count 312 10^3/cmm (130-400); Red Blood Count 4.48 10^6/uL (4.1-5.3); Red Cell Distribution Width 12.6 % (12.1-15.1); White Blood Count 7.1 10^3/uL (4.0-10.0)
[2020-08-06 06:25] LABS: Glucose Point of Care 141 mg/dL (70-110)
[2020-08-06 06:26] LABS: Alanine Aminotransferase 102 U/L (0-33); Albumin Level 3.3 g/dL (3.5-5.2); Alkaline Phosphatase 84 IU/L (35-105); Anion Gap 14.6 (5-19); Aspartate Amino Transferase 72 U/L (0-32); Blood Urea Nitrogen 9 mg/dL (8-23); Calcium 9.6 mg/dL (8.5-10.5); Carbon Dioxide 25 mmol/L (22-29); Chloride 101 mmol/L (98-107); Creatinine Clr Calc Pharmacy 51.3518; Globulin 3.9 g/dL (1.3-4.6); Glucose 138 mg/dL (65-115); Osmolality Calculated 285 mOsm/kg (285-295); Potassium 3.6 mmol/L (3.5-5.1); Sodium 137 mmol/L (136-145); Total Bilirubin 0.4 mg/dL (0.15-1.2); Total Protein 7.2 g/dL (6.6-8.7)
[2020-08-06] MEDS: enoxaparin 40 mg/0.4 mL Syringe SUBCUT (06:36)
[2020-08-06 06:38] LABS: Estmated Average Glucose 111; Hemoglobin A1C 5.5 % (4.0-6.0)
[2020-08-06 07:16] LABS: Folate Level 6.3 ng/mL (4.8-37.3)
[2020-08-06 07:29] VITALS: BP 169/83; PULSE 83; RESP 17; TEMP 36.7; O2SAT 91
[2020-08-06] MEDS: levothyroxine 75 mcg Tablet PO (08:47)
[2020-08-06] MEDS: aspirin 81 mg EC Tablet PO (08:47)
[2020-08-06] MEDS: levETIRAcetam 500 mg Tablet 250 MG PO (08:48)
[2020-08-06] MEDS: metoprolol tartrate 25 mg Tablet PO (08:48)
[2020-08-06] MEDS: cephALEXin 500 mg Capsule PO ×2 (08:48→15:47)
[2020-08-06] MEDS: amlodipine 10 mg Tablet PO (08:48)
[2020-08-06] MEDS: doxycycline 100 mg Tablet PO ×2 (08:48→17:06)
[2020-08-06] MEDS: levothyroxine 100 mcg Tablet PO (08:48)
[2020-08-06] MEDS: clopidogrel 75 mg Tablet PO (08:48)
--- NOTE | 2020-08-06 09:05 | PC.SOCIAL ---
Pg 2 IMM Explained to pt Pg 2 IMM. No questions voiced. Provided pt a copy. Signed, dated, & timed a copy & placed in chart.
[2020-08-06] MEDS: cyanocobalamin 1,000 mcg/mL SDV 1000 MCG IM (10:46)
[2020-08-06 11:31] VITALS: BP 134/63; PULSE 67; RESP 15; TEMP 36.6; O2SAT 95
--- NOTE | 2020-08-06 12:28 | P.DS_ITS ---
Discharge Providers Date of Admission: 08/03/20 02:55 Date of Discharge: August 06, 2020 Attending Provider at Admission: Morelia Patel MD Attending Provider at Discharge: Francisco Geiger MD Primary Care Provider: Gretchen Sanon MD Diagnoses at Discharge Discharge Diagnosis (1) Altered mental status: Status: Acute (2) Cellulitis: Status: Acute (3) Pneumonia: Status: Acute (4) Dementia: Status: Acute (5) Weakness: Status: Acute Reason for Visit Reason for Visit: WEAKNESS AND CONFUSION Hospital Course Hospital Course Monique Boo is a 80 year old female who carries history of coronary disease, hypertension and diabetes presented today with chief complaint of altered mental status. 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 Her daughter has not noticed any vomiting, fever, loss of consciousness or seizure-like activities. She was brought to the hospital for further evaluation 1 today she noticed rash on her left thigh. EMS was called. En route to the hospital she had 1 episode of emesis, she was saturating well, afebrile dynamically stable, she has been constipated for last few days as well. Diagnostics in the ER revealed sepsis, criteria met with tachycardia and leukocytosis, her chest x-ray showing evolving pneumonia, left leg cellulitis, CT of lower extremity did not reveal any gas gangrene or necrotizing fasciitis. As per the daughter this skin rash just developed today it was not present yesterday, she also has a skin abrasion around right sacral area, it is not an open wound, normal UA. Patient admitted to the hospital for work-up of altered mental status which was thought to be because of septic encephalopathy from cellulitis. She was started on broad-spectrum antibiotics. Eventually her mentation improved to her baseline of AO x1-2 because of advanced dementia. Her blood cultures remain negative. Antibiotic coverage was changed to cephalexin and doxycycline. She is to take 7 more days worth of antibiotics to finish a course of 10 days overall. She remained hemodynamically stable. During hospitalization her A1c was found to be 5.5. Her antidiabetic medications were changed. She is to take Metformin 1000 mg twice daily and Januvia 100 mg daily. Glipizide have been stopped because of potential side effect of hypoglycemia given the advanced age. Her antihypertensives were also adjusted. She is to take metoprolol succinate 50 mg daily along with amlodipine 10 mg daily and losartan 100 mg daily. She has been set up an appointment to see Dr. Sanon as an outpatient within next 4 to 7 days. Home health has been set up. An order for hospital bed has also been sent given severe deconditioning, weakness and potential risk of aspiration with the patient. She is been discharged hemodynamically stable condition with all the above recommendations. Physical Exam Narrative: EXAM NARRATIVE: General: No acute distress, AO x 1-2 HEENT: PERRLA, pupils bilaterally equal and reactive Chest: Normal vesicular breath sounds, no added sounds, equal good air entry bilaterally CVS: S1-S2 regular, no murmurs, no tachycardia, no gallops, no rubs Abdomen: Soft, nontender, no organomegaly, bowel sounds present Neuro: No focal deficits, no facial deformity, moving all limbs, AO x1-2. Extremities: Erythematous tender to palpation rash present on the left posterior thigh with 3 superficial anna size ulcers without any sloughing or foul smell. Discharge Data Data Completed and Pending: Completed Studies During Hospitalization Category Date Time Status CT chest wo con 7 1250 Urgent Cat Scan 08/05/20 12:[address] head wo con* 7 0450 Urgent Cat Scan 08/02/20 23:[address] lower leg LT w con [id number] Urgent Cat Scan 08/03/20 02:49 Completed XR chest 1V polly ble [id number] Urgent Exams 08/02/20 23:45 [place] [id number] Routin e Ultrasound 08/03/20 08:55 Completed Pending at discharge Category Date Time Status Blood Culture Sta t Lab 08/02/20 01:32 Results Complete Blood Co unt w/Auto AM LABS Lab 08/07/20 04:00 Ordered Comprehensive Met abolic Panel AM LA BS Lab 08/07/20 04:00 Ordered Levetiracetam Kep pra Routine Lab 08/03/20 04:42 Received Miscellaneous Ya t Routine Lab 08/05/20 15:57 Received Vancomycin Trough Timed Lab 08/07/20 01:00 Ordered Labs from last 24 hours 08/06/20 08/06/20 08/06/20 06:07 05:48 05:48 WBC RBC Hgb Hct MCV MCH MCHC RDW Plt Count MPV Neut % (Auto) Lymph % (Auto) Shelby % (Auto) Eos % (Auto) Baso % (Auto) Neut # (Auto) Lymph # (Auto) Shelby # (Auto) Eos # (Auto) Baso # (Auto) Nucleated RBC % (a uto) Nucleated RBCs # Sodium 137 Potassium 3.6 Chloride 101 Carbon Dioxide 25 Anion Gap 14.6 BUN 9 Creatinine 0.6 GFR Calculation Not Reportable Glucose 138 H POC Glucose 141 H Estimat Average Gl ucose 111 Hemoglobin A1c 5.5 Calculated Osmolal ity 285 Calcium 9.6 Total Bilirubin 0.4 AST 72 H ALT 102 H Alkaline Phosphata se 84 Total Protein 7.2 Albumin 3.3 L Globulin 3.9 Vitamin B12 Folate Procalcitonin TSH Nasal/Oral COVID-1 9 PCR Misc Test Referenc e 08/06/20 08/05/20 08/05/20 05:48 20:01 17:11 WBC 7.1 RBC 4.48 Hgb 13.6 Hct 40.9 MCV 91.3 MCH 30.4 MCHC 33.3 RDW 12.6 Plt Count 312 MPV 9.1 Neut % (Auto) 55.0 Lymph % (Auto) 25.1 Shelby % (Auto) 10.8 Eos % (Auto) 7.9 Baso % (Auto) 0.4 Neut # (Auto) 3.92 Lymph # (Auto) 1.8 Shelby # (Auto) 0.8 Eos # (Auto) 0.6 Baso # (Auto) 0.0 Nucleated RBC % (a uto) 0 Nucleated RBCs # 0.0 Sodium Potassium Chloride Carbon Dioxide Anion Gap BUN Creatinine GFR Calculation Glucose POC Glucose 184 H 143 H Estimat Average Gl ucose Hemoglobin A1c Calculated Osmolal ity Calcium Total Bilirubin AST ALT Alkaline Phosphata se Total Protein Albumin Globulin Vitamin B12 Folate Procalcitonin TSH Nasal/Oral COVID-1 9 PCR Misc Test Referenc e 08/05/20 08/05/20 08/05/20 15:57 05:13 05:13 WBC RBC Hgb Hct MCV MCH MCHC RDW Plt Count MPV Neut % (Auto) Lymph % (Auto) Shelby % (Auto) Eos % (Auto) Baso % (Auto) Neut # (Auto) Lymph # (Auto) Shelby # (Auto) Eos # (Auto) Baso # (Auto) Nucleated RBC % (a uto) Nucleated RBCs # Sodium Potassium Chloride Carbon Dioxide Anion Gap BUN Creatinine GFR Calculation Glucose POC Glucose Estimat Average Gl ucose Hemoglobin A1c Calculated Osmolal ity Calcium Total Bilirubin AST ALT Alkaline Phosphata se Total Protein Albumin Globulin Vitamin B12 209 L Folate 6.3 Procalcitonin TSH Nasal/Oral COVID-1 9 PCR Misc Test Referenc e Pending 08/05/20 08/05/20 08/05/20 05:13 05:13 05:13 WBC RBC Hgb Hct MCV MCH MCHC RDW Plt Count MPV Neut % (Auto) Lymph % (Auto) Shelby % (Auto) Eos % (Auto) Baso % (Auto) Neut # (Auto) Lymph # (Auto) Shelby # (Auto) Eos # (Auto) Baso # (Auto) Nucleated RBC % (a uto) Nucleated RBCs # Sodium Potassium Chloride Carbon Dioxide Anion Gap BUN Creatinine GFR Calculation Glucose POC Glucose Estimat Average Gl ucose Hemoglobin A1c Calculated Osmolal ity Calcium Total Bilirubin AST ALT Alkaline Phosphata se Total Protein 6.5 L Albumin Globulin 3.1 Vitamin B12 Folate Procalcitonin 0.09 TSH 3.69 Nasal/Oral COVID-1 9 PCR Misc Test Referenc e 08/03/20 10:15 WBC RBC Hgb Hct MCV MCH MCHC RDW Plt Count MPV Neut % (Auto) Lymph % (Auto) Shelby % (Auto) Eos % (Auto) Baso % (Auto) Neut # (Auto) Lymph # (Auto) Shelby # (Auto) Eos # (Auto) Baso # (Auto) Nucleated RBC % (a uto) Nucleated RBCs # Sodium Potassium Chloride Carbon Dioxide Anion Gap BUN Creatinine GFR Calculation Glucose POC Glucose Estimat Average Gl ucose Hemoglobin A1c Calculated Osmolal ity Calcium Total Bilirubin AST ALT Alkaline Phosphata se Total Protein Albumin Globulin Vitamin B12 Folate Procalcitonin TSH Nasal/Oral COVID-1 9 PCR Not detected Misc Test Referenc e Vitals: Last Vital Signs Temp 97.9 F 08/06/20 11:31 Pulse 67 08/06/20 11:31 Resp 15 08/06/20 11:31 BP 134/63 08/06/20 11:31 Pulse Ox 95 08/06/20 11:31 Discharge Plan Discharge Patient Disposition: Home Health Service Condition: Stable Prescriptions: New doxycycline monohydrate 100 mg Tablet 100 mg PO BID 7 Days Qty: 14 RF: 0 amlodipine 10 mg Tablet 10 mg PO DAILY Qty: 30 RF: 0 cephalexin 500 mg Capsule 500 mg PO TID 7 Days Qty: 21 RF: 0 metoprolol succinate 50 mg capsule,sprinkle,ER 24hr 50 mg PO DAILY Qty: 30 RF: 0 mirtazapine 15 mg Tablet 15 mg PO DAILY@21 Qty: 30 RF: 0 Continued atorvastatin 40 mg tablet 40 mg PO DAILY@ Qty: 30 RF: 0 Euthyrox 175 mcg tablet 175 mcg PO DAILY@ Qty: 30 RF: 0 clopidogrel 75 mg tablet 75 mg PO DAILY@ Qty: 30 RF: 0 aspirin 81 mg Tablet,Delayed Release (Dr/Ec) 81 mg PO DAILY@ Qty: 30 RF: 0 levetiracetam 250 mg tablet 250 mg PO BID@ Qty: 60 RF: 0 losartan 100 mg tablet 100 mg PO DAILY@ Qty: 30 RF: 0 memantine 10 mg tablet 10 mg PO DAILY@ Qty: 30 RF: 0 metformin 1,000 mg tablet 1,000 mg PO BID@ Qty: 60 RF: 0 Discontinued mirtazapine 30 mg tablet 30 mg PO DAILY@ RF: 0 Januvia 100 mg tablet 100 mg PO DAILY@ RF: 0 metoprolol tartrate 75 mg tablet 75 mg PO DAILY@ RF: 0 glipizide 5 mg tablet 5 mg PO DAILY@ RF: 0 Discharge Orders: Discharge Order (Routine); Ordered 08/06/20 Ordered By: Francisco Geiger Other Ambulatory Orders: DME: Hospital Bed (Order) Location: None Selected Ordered By: Francisco Geiger Referrals: [facility] ([facility]) [Outside] Gretchen Sanon MD [Primary Care Provider] - Discharge Diet: Usual diet Discharge Activity: Increase activity as tolerated Activity Restrictions/Additional Instructions: Please follow-up with your primary care provider on the set appointment. Dr. Sanon has been consulted for your primary care. Please take antibiotic cephalexin and doxycycline as prescribed for next 7 days to finish a course for cellulitis. Diabetes medication including glipizide has been stopped. Continue taking Januvia and Metformin as before. Metoprolol tartrate has been switched to metoprolol succinate 50 mg daily. Discharge Attestations Time Spent in Discharge Care*: greater than 30 min Specific Discharge Activities: educating and/or supporting family/caregiver, discussing with pcp/other providers, discussing with disease case manager rn/social workers/dc planners, documenting/other paperwork and evaluating patient/reviewing data Status at Discharge: Cognitive status at discharge: moderately impaired cognition , Behavioral status at discharge: cooperative , Functional status at discharge: other assisted ambulation Overall status at discharge: patient is back to baseline Quality Metrics Clinical Quality Measures During this hospital stay, did patient experience: None Coding Level of Care Code Acute 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
--- NOTE | 2020-08-06 14:19 | PC.NURSE ---
discharge instructions provided to pts daughter. she verbalized understanding. Waiting for wheelchair van for transportation home.
[2020-08-06 15:23] VITALS: BP 137/67; PULSE 69; RESP 17; TEMP 36.7; O2SAT 96
[2020-08-06 15:38] LABS: Levetiracetam Keppra 4.9 mcg/mL
[2020-08-06 16:15] LABS: Glucose Point of Care 141 mg/dL (70-110)
[2020-08-06 16:15] LABS: Glucose Point of Care 155 mg/dL (70-110)
[2020-08-06 17:22] VITALS: BP 137/67; PULSE 69; RESP 17; TEMP 36.7; O2SAT 96
--- NOTE | 2020-08-06 17:23 | PC.NURSE ---
patient's discharge instructions given patient's daughter. daughter verbalized understanding of instructions. patient now transported home by [facility] transport via wheelchair.
== END 2020-08-06 17:24 | disposition home health service (06) | DRG 871 ==
LOC: ER 08-03 02:07 → MEDSURG 08-03 03:32
PROVIDERS: Internal Medicine; Admitting Provider Internal Medicine; Emergency Provider Emergency Medicine; PCP Family Medicine; Visit Provider Student in an Organized Health Care Education/Training Program
DX: A41.9 Sepsis, unspecified organism (principal); J18.9 Pneumonia, unspecified organism; G93.41 Metabolic encephalopathy; L03.116 Cellulitis of left lower limb; I25.10 Atherosclerotic heart disease of native coronary artery without angina pectoris; Z95.5 Presence of coronary angioplasty implant and graft; I10 Essential (primary) hypertension; E11.9 Type 2 diabetes mellitus without complications; G40.909 Epilepsy, unspecified, not intractable, without status epilepticus; E78.5 Hyperlipidemia, unspecified; E89.0 Postprocedural hypothyroidism; Z66 Do not resuscitate; F03.90 Unspecified dementia, unspecified severity, without behavioral disturbance, psychotic disturbance, mood disturbance, and anxiety; Z79.02 Long term (current) use of antithrombotics/antiplatelets; Z79.82 Long term (current) use of aspirin; Z79.84 Long term (current) use of oral hypoglycemic drugs
CPT/HCPCS: 12345; 36415; 36416; 70450; 71045; 71250; 73701; 80048; 80053; 80177; 81001; 82607; 82746; 82962; 83036; 83605; 84145; 84146; 84443; 85025; 85610; 86140; 87040; 87086; 87426; 87635; 87641; 93005; 93971; 96372; 99283; J1650; J1815; J2060; J2543; J3370; J3420; J7030; J7050; Q9967

== ENCOUNTER 2021-02-04 10:35 | Emergency (ER) | payer MEDICARE, MEDICAID, SELFPAY ==
[2021-02-04] VITALS (8 sets, daily range): BP systolic 108–134; BP diastolic 47–82; PULSE 79–94; RESP 16–18; TEMP 36.7; O2SAT 93–95; BMI 34.7
--- NOTE | 2021-02-04 10:40 | W.ED.AMS ---
Documented by User: ADY Cai 02/05/21 07:22 HPI - Altered Mental Status General: Chief Complaint: Extremity Problem,Nontraumatic Stated Complaint: TOE PAIN Time Seen by Provider: 02/04/21 10:40 Source: family and EMS Mode of arrival: EMS Limitations: altered mental status History of Present Illness: HPI narrative: Patient is an 80-year-old male who arrives to the ED today via EMS for complaints of left toe pain and increased confusion. Patient has severe dementia so most of history is obtained from EMS as well as speaking to her daughter on the phone. Daughter states she has been doctoring her left toe over the past few weeks. She states she is not taking her to see a provider as patient is bed bound and daughter is not able to get her into a vehicle and does not know how to set up any form of transportation to get her to a medical appointment. She states her mother over the past few days has been increasingly confused. She has not had any cough or URI symptoms. No fevers. Again patient is bed bound. Daughter has not noticed any pressure ulcers. Patient has not had any injury/trauma to her left toe that daughter knows of. MD complaint: altered mental status, confusion and other (L toe pain) Onset (ago): day(s) Timing confirmed by: family member Consistency of symptoms: Waxing and Waning Context: other (dementia) Associated symptoms: Reports no associated symptoms Review of Systems General: Reports: ROS unobtainable due to medical condition and ROS unobtainable due to mental status PFS ED PFSH: Medical History Coronary artery disease Dementia Diabetes Dyslipidemia Hypertension Seizure disorder Weakness Surgical History H/O thyroidectomy H/O: hysterectomy Stented coronary artery Family History Other Family history non-contributory Social History Smoking and tobacco status: never smoked Alcohol intake: never Household members: family Housing: House Physical Exam Const: COMMON NORMALS: no acute distress and alert GENERAL APPEARANCE: cooperative NUTRITIONAL APPEARANCE: overweight ORIENTATION/CONSCIOUSNESS: Yes awake, Yes oriented to person and Yes confused (hx of dementia) OTHER: tells me [place] for location; thinks Jayjay Garcia is the president; does not know month/year; she does know her name and HENMT: COMMON NORMALS: normocephalic and atraumatic HEAD & SCALP: normocephalic and atraumatic Resp: COMMON NORMALS: normal respiratory effort and clear to auscultation bilaterally AUSCULTATION: clear to auscultation bilaterally Cardio: COMMON NORMALS: regular rate and regular rhythm RATE: regular rate RHYTHM: regular rhythm GI: COMMON NORMALS: Normal to inspection, nondistended, normoactive bowel sounds present, Soft to palpation and non-tender PALPATION: Yes Soft to palpation Extremity: GENERAL: Yes edema OTHER: patient L great toenail is un-attaching from nail bed; there appears to be possible dried blood possibly from trauma or hypertrophic tissue formation; there is no redness, swelling, discharge or odor to suggest infection Neuro: ROCIO COMA SCALE: document GCS findings [place] coma scale eye opening: Spontaneous [place] coma scale verbal response: Confused [place] coma scale motor response: Obey commands [place] coma scale total score: 14 SENSORIUM/ORIENTATION: Yes alert and Yes oriented to person Course Vital Signs: Vital signs: Vital Signs Temperature 98.1 F 02/04/21 10:38 Pulse Rate 84 02/05/21 01:36 Respiratory Rate 18 02/05/21 01:36 Blood Pressure 124/94 02/05/21 01:36 Pulse Oximetry 95 02/05/21 01:36 MDM - Altered Mental Status MDM Narrative: Medical decision making narrative: Care transferred to Bienvenido Esquivel PA-C at shift change. Patient has no evidence for infection anywhere. Labs showing very mild white count elevation at 13,000. Her lactate is over 4 and I don't have an explanation for this. Plan is to give fluids to patient and recheck. She certaininly does not appear septic. Her vitals are perfect. Plan would be for a podiatry follow up regarding her toe. Lab Data: Labs: Lab Results 02/04/21 02/04/21 02/04/21 Range/Units 12:29 12:29 12:29 WBC 13.0 H (4.0-10.0) 10^3/ uL RBC 4.43 (4.1-5.3) 10^6/u L Hgb 13.5 (11.5-15.3) g/dL Hct 41.1 (37.0-47.0) % MCV 92.8 (81-99) fL MCH 30.5 (28.0-34.0) pg MCHC 32.8 (30.0-36.0) g/dL RDW 12.5 (12.1-15.1) % Plt Count 365 (130-400) 10^3/c mm MPV 9.4 (7.4-10.4) fL Neut % (Auto) 74.4 % Lymph % (Auto) 16.5 % [place] % (Auto) 7.4 % Eos % (Auto) 1.2 % Baso % (Auto) 0.3 % Neut # (Auto) 9.62 H (1.8-7.7) 10^3/u L Lymph # (Auto) 2.1 (0.8-4.8) 10^3/u L [place] # (Auto) 1.0 H (0.2-0.9) 10^3/u L Eos # (Auto) 0.2 (0.0-0.8) 10^3/u L Baso # (Auto) 0.0 (0.0-0.1) 10^3/u L Nucleated RBC % (a uto) 0 % Nucleated RBCs # 0.0 /100WBC Sodium 136 (136-145) mmol/L Potassium 3.7 (3.5-5.1) mmol/L Chloride 95 L (98-107) mmol/L Carbon Dioxide 26 (22-29) mmol/L Anion Gap 18.7 (5-19) BUN 13 (8-23) mg/dL Creatinine 0.4 L (0.5-0.9) mg/dL GFR Calculation Not Reportable Glucose 131 H (65-115) mg/dL Calculated Osmolal ity 284 L (285-295) mOsm/k g Lactic Acid 4.2 H* (0.5-2.2) mmol/L Lactic Acid (Sepsi s) (0.5-2.2) mmol/L Lactate (0.5-2.2) mmol/L Calcium 9.5 (8.5-10.5) mg/dL Total Bilirubin 0.5 (0.15-1.2) mg/dL AST 16 (0-32) U/L ALT 14 (0-33) U/L Alkaline Phosphata se 66 (35-105) IU/L Creatine Kinase 33 (26-192) U/L Total Protein 7.0 (6.6-8.7) g/dL Albumin 3.8 (3.5-5.2) g/dL Globulin 3.2 (1.3-4.6) g/dL TSH 2.97 (0.27-4.20) uIU/ mL Urine Color (Yellow) Urine Appearance (CLEAR) Urine pH (5-7) Ur Specific Gravit y (1.005-1.030) Urine Protein (Negative) Urine Glucose (UA) (Normal) Urine Ketones (Negative) Urine Blood (Negative) Urine Nitrate (Negative) Urine Bilirubin (Negative) Urine Urobilinogen (Negative) mg/dL Ur Leukocyte Johanne ase (Negative) 02/04/21 02/04/21 02/04/21 Range/Units 12:49 17:17 22:05 WBC (4.0-10.0) 10^3/ uL RBC (4.1-5.3) 10^6/u L Hgb (11.5-15.3) g/dL Hct (37.0-47.0) % MCV (81-99) fL MCH (28.0-34.0) pg MCHC (30.0-36.0) g/dL RDW (12.1-15.1) % Plt Count (130-400) 10^3/c mm MPV (7.4-10.4) fL Neut % (Auto) % Lymph % (Auto) % [place] % (Auto) % Eos % (Auto) % Baso % (Auto) % Neut # (Auto) (1.8-7.7) 10^3/u L Lymph # (Auto) (0.8-4.8) 10^3/u L [place] # (Auto) (0.2-0.9) 10^3/u L Eos # (Auto) (0.0-0.8) 10^3/u L Baso # (Auto) (0.0-0.1) 10^3/u L Nucleated RBC % (a uto) % Nucleated RBCs # /100WBC Sodium (136-145) mmol/L Potassium (3.5-5.1) mmol/L Chloride (98-107) mmol/L Carbon Dioxide (22-29) mmol/L Anion Gap (5-19) BUN (8-23) mg/dL Creatinine (0.5-0.9) mg/dL GFR Calculation Glucose (65-115) mg/dL Calculated Osmolal ity (285-295) mOsm/k g Lactic Acid (0.5-2.2) mmol/L Lactic Acid (Sepsi s) 4.0 H (0.5-2.2) mmol/L Lactate 2.6 H (0.5-2.2) mmol/L Calcium (8.5-10.5) mg/dL Total Bilirubin (0.15-1.2) mg/dL AST (0-32) U/L ALT (0-33) U/L Alkaline Phosphata se (35-105) IU/L Creatine Kinase (26-192) U/L Total Protein (6.6-8.7) g/dL Albumin (3.5-5.2) g/dL Globulin (1.3-4.6) g/dL TSH (0.27-4.20) uIU/ mL Urine Color Straw (Yellow) Urine Appearance Clear (CLEAR) Urine pH 5 (5-7) Ur Specific Gravit y 1.010 (1.005-1.030) Urine Protein Neg (Negative) Urine Glucose (UA) Norm (Normal) Urine Ketones Negative (Negative) Urine Blood Neg (Negative) Urine Nitrate Negative (Negative) Urine Bilirubin Neg (Negative) Urine Urobilinogen Norm (Negative) mg/dL Ur Leukocyte Johanne ase Negative (Negative) Imaging Data^: CXR: Radiologist's impression: [address] [address] XRay Report Signed Patient: Monique Boo Unit #: [id number] : 1940 Age/Sex: 80 / F ADM Date: 02/04/21 Loc: ER Room/Bed: Attending Dr: Ordering Provider/Ordering MD: Trini Regan Date of Service: 02/04/21 Procedure(s): XR chest 1V portable [id number] Accession Number(s): [id number] Report Number: [id number] WS: [id number] XR chest 1V portable [id number] REASON FOR EXAM: AMS FINDINGS: Mild tortuosity thoracic aorta. Normal heart size. Calcified granulomatous disease in both hemithoraces. Linear fibrotic changes in the right mid lung field. No acute pulmonary parenchymal or pleural abnormality. Changes of degenerative spondylosis in the mid and lower thoracic spine. Bony thorax otherwise intact. XR/XR chest 1V portable [id number] IMPRESSION: No acute pulmonary abnormality. The chest is unchanged compared to 08/02/2020. Dictated By: Leon Almanzar Jr, MD Signed By: Leon Almanzar Jr, MD Signed Date/Time: 02/04/21 1130 DD/ 1128 CT Head: Radiologist's impression: [address] [place] [address] CT Scan Report Signed Patient: Monique Boo Unit #: [id number] : 1940 Age/Sex: 80 / F ADM Date: 02/04/21 Loc: ER Room/Bed: Attending Dr: Ordering Provider/Ordering MD: Trini Regan Date of Service: 02/04/21 Procedure(s): CT head wo con* 43638 Accession Number(s): [id number] Report Number: [id number] WS: [id number] CT head wo con* [id number] REASON FOR EXAM: worsening AMS IV CONTRAST ADMINISTERED: Noncontrast. TOTAL EXAM DLP: 1690.[address] scans at [facility] use at least one of these dose optimization techniques: automated exposure control; mA and/or kV adjustment per patient size (includes targeted exams where dose is matched to clinical indication); or iterative reconstruction. FINDINGS: No midline shift or other significant mass effect. No findings of intracranial hemorrhage and no extra-axial fluid collection. No acute focal brain parenchymal abnormality in the cerebral hemispheres, brainstem, or cerebellar hemispheres. 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 Ventricles and CSF spaces show mild symmetric increase compatible with symmetric global atrophy. The base of the skull in the bony calvarium are intact. There is thickening of the mucosa of the ethmoid sinuses and some thickening of the mucosa in the maxillary sinuses with increased soft tissue density in the right maxillary sinus. These findings are compatible with chronic sinusitis. CT/CT head wo con* [id number] IMPRESSION: Changes of aging brain without acute intracranial abnormality. Dictated By: Leon Almanzar Jr, MD Signed By: Leon Almanzar Jr, MD Signed Date/Time: 02/04/21 1136 DD/ 1130 XR L great toe: Radiologist's impression: [id number], [place] [address]UJwq ReportSigned Patient: Monique Boo #: [id number]: 9Acct#:[id number]/Sex: 80 / FADM Date: 02/04/21Loc: ERRoom/Bed:Attending Dr: Ordering Provider/Ordering MD: Trini Regan Date of Service: 02/04/21 Procedure(s): XR toe LT min 2V 52913 Accession Number(s): [id number] Report Number: [id number] WS: [id number] XR toe LT min 2V 59735 REASON FOR EXAM: great toe FINDINGS: No fracture is identified. There is an exostosis from the medial aspect of the base of the distal phalanx of the great toe that projects laterally and anteriorly. There are no findings of osteomyelitis identified. There is slight deformity and old organized periosteal reaction involving the base of the proximal phalanges of the first 3 toes compatible with old healed fracture. There are symmetric narrowing of the DIP and MIP joint spaces with subchondral sclerosis. XR/XR toe LT min 2V 20297 IMPRESSION: No fracture or evidence of osteomyelitis in the distal phalanx of the great toe. Dictated By:Leon Almanzar Jr MDSigned By:Leon Almanzar Jr MDSigned Date/Time:02/04/21 1215DD/ 1154 Discharge Plan Discharge Patient Disposition: Home Clinical Impression: Injury of toe Qualifiers: Encounter type: initial encounter Laterality: left Qualified Code(s): S99.922A - Unspecified injury of left foot, initial encounter Dementia Qualifiers: Dementia type: unspecified type Dementia behavioral disturbance: without behavioral disturbance Qualified Code(s): F03.90 - Unspecified dementia without behavioral disturbance Condition: Stable Prescriptions: No Action atorvastatin 40 mg tablet 40 mg PO DAILY@21 Qty: 30 RF: 3 Euthyrox 175 mcg tablet 175 mcg PO DAILY@ Qty: 30 RF: 3 memantine 10 mg tablet 10 mg PO DAILY@ Qty: 30 RF: 3 aspirin 81 mg Tablet,Delayed Release (Dr/Ec) 81 mg PO DAILY@ Qty: 30 RF: 0 metoprolol succinate 50 mg tablet extended release 24 hr 50 mg PO DAILY@2099 RF: 0 clopidogrel 75 mg tablet 75 mg PO DAILY@899 RF: 0 levetiracetam 250 mg tablet 250 mg PO BID@ RF: 0 amlodipine 10 mg tablet 10 mg PO DAILY@899 RF: 0 metformin 1,000 mg tablet 1,000 mg PO BID@ RF: 0 mirtazapine 15 mg tablet 15 mg PO BEDTIME@2099 RF: 0 losartan 100 mg tablet 100 mg PO DAILY@2099 RF: 0 Discharge Orders: Discharge ED (Routine); Ordered 02/04/21 Ordered By: Bienvenido Esquivel Referrals: Gretchen Sanon MD [Primary Care Provider] - Discharge Diet: Regular Discharge Activity: Resume usual activity Patient Instructions: Dementia (ED) Activity Restrictions/Additional Instructions: Follow-up with medical provider as directed. I placed an order with case management for patient to be referred to a scientific process operator for further outpatient evaluation of left great toe. Continue taking home medications as prescribed. Return to the ER or your medical provider if condition worsens. Please read and understand discharge instructions. Thank you for choosing [facility] for your healthcare needs today. Please realize this is an emergency room and that we are providing you with a medical screening exam and this may not be complete and all inclusive of all the testing and or work up that you may need to determine your ailment or severity of your illness. It is very important that you follow up as instructed or that you return to the Emergency Department should you have concerns or if your condition changes or worsens in any way. Sign Out Sign Out Data: Patient Sign Out occurred on 02/04/21 at 17:16. Patient's care was discussed, and care was transferred from to ADY Vasquez. Coding Level of Care Code ED Director Pediatric for Chg Fwd Exam Detailed Documented by User: ADY Vasquez 02/05/21 03:15 HPI - Altered Mental Status General: Chief Complaint: Extremity Problem,Nontraumatic Stated Complaint: TOE PAIN Time Seen by Provider: 02/04/21 10:40 PFSH ED PFSH: Medical History Coronary artery disease Dementia Diabetes Dyslipidemia Hypertension Seizure disorder Weakness Surgical History H/O thyroidectomy H/O: hysterectomy Stented coronary artery Family History Other Family history non-contributory Social History Smoking and tobacco status: never smoked Alcohol intake: never Household members: family Housing: House Course Vital Signs: Vital signs: Vital Signs Temperature 98.1 F 02/04/21 10:38 Pulse Rate 84 02/05/21 01:36 Respiratory Rate 18 02/05/21 01:36 Blood Pressure 124/94 02/05/21 01:36 Pulse Oximetry 95 02/05/21 01:36 MDM - Altered Mental Status MDM Narrative: Medical decision making narrative: Patient is a 80-year-old female comes to the ED via EMS with injury to left great toe. Patient has a past medical history of dementia. Trini Regan the physician licensed loan officer assistant performed the initial history, physical exam and lab work-up. Trini also spoke with patient's preferred contact and they said patient's dementia has worsened a little. Vitals are stable. Patient's left great toe has dried blood underneath the nail or its hypertrophic tissue formation. No other acute exam findings. Patient's GCS scale is 14. Patient had a white blood cell count of 13 but the rest of CBC and CMP were unremarkable. Chest x-ray showed no acute findings. CT of head showed no acute findings. X-ray of left great toe showed no acute fractures or findings. Patient's initial lactic was 4.2 and then after given 1 L of fluids the second lactic was 4.0. I spoke with Dr. Maki about patient case and he recommended giving patient another 1500 mL of fluid and rechecking lactic. after patient received more IV fluid her third lactic was 2.6. I discussed patient case again with Dr. Maki and with patient's stable vitals and significantly improving third lactic level he thought patient was stable for discharge home. I placed an order with case management for patient to be referred to podiatry and that she will need some help with transportation as well to get to the podiatry office. Patient diagnosed with injury of left great toe and dementia. She was discharged home. Return to ED precautions given. Patient understood and agree with plan. Lab Data: Attestation: I reviewed the patient's lab results. Labs: Lab Results 02/04/21 02/04/21 02/04/21 Range/Units 12:29 12:29 12:29 WBC 13.0 H (4.0-10.0) 10^3/ uL RBC 4.43 (4.1-5.3) 10^6/u L Hgb 13.5 (11.5-15.3) g/dL Hct 41.1 (37.0-47.0) % MCV 92.8 (81-99) fL MCH 30.5 (28.0-34.0) pg MCHC 32.8 (30.0-36.0) g/dL RDW 12.5 (12.1-15.1) % Plt Count 365 (130-400) 10^3/c mm MPV 9.4 (7.4-10.4) fL Neut % (Auto) 74.4 % Lymph % (Auto) 16.5 % [place] % (Auto) 7.4 % Eos % (Auto) 1.2 % Baso % (Auto) 0.3 % Neut # (Auto) 9.62 H (1.8-7.7) 10^3/u L Lymph # (Auto) 2.1 (0.8-4.8) 10^3/u L [place] # (Auto) 1.0 H (0.2-0.9) 10^3/u L Eos # (Auto) 0.2 (0.0-0.8) 10^3/u L Baso # (Auto) 0.0 (0.0-0.1) 10^3/u L Nucleated RBC % (a uto) 0 % Nucleated RBCs # 0.0 /100WBC Sodium 136 (136-145) mmol/L Potassium 3.7 (3.5-5.1) mmol/L Chloride 95 L (98-107) mmol/L Carbon Dioxide 26 (22-29) mmol/L Anion Gap 18.7 (5-19) BUN 13 (8-23) mg/dL Creatinine 0.4 L (0.5-0.9) mg/dL GFR Calculation Not Reportable Glucose 131 H (65-115) mg/dL Calculated Osmolal ity 284 L (285-295) mOsm/k g Lactic Acid 4.2 H* (0.5-2.2) mmol/L Lactic Acid (Sepsi s) (0.5-2.2) mmol/L Lactate (0.5-2.2) mmol/L Calcium 9.5 (8.5-10.5) mg/dL Total Bilirubin 0.5 (0.15-1.2) mg/dL AST 16 (0-32) U/L ALT 14 (0-33) U/L Alkaline Phosphata se 66 (35-105) IU/L Creatine Kinase 33 (26-192) U/L Total Protein 7.0 (6.6-8.7) g/dL Albumin 3.8 (3.5-5.2) g/dL Globulin 3.2 (1.3-4.6) g/dL TSH 2.97 (0.27-4.20) uIU/ mL Urine Color (Yellow) Urine Appearance (CLEAR) Urine pH (5-7) Ur Specific Gravit y (1.005-1.030) Urine Protein (Negative) Urine Glucose (UA) (Normal) Urine Ketones (Negative) Urine Blood (Negative) Urine Nitrate (Negative) Urine Bilirubin (Negative) Urine Urobilinogen (Negative) mg/dL Ur Leukocyte Johanne ase (Negative) 02/04/21 02/04/21 02/04/21 Range/Units 12:49 17:17 22:05 WBC (4.0-10.0) 10^3/ uL RBC (4.1-5.3) 10^6/u L Hgb (11.5-15.3) g/dL Hct (37.0-47.0) % MCV (81-99) fL MCH (28.0-34.0) pg MCHC (30.0-36.0) g/dL RDW (12.1-15.1) % Plt Count (130-400) 10^3/c mm MPV (7.4-10.4) fL Neut % (Auto) % Lymph % (Auto) % [place] % (Auto) % Eos % (Auto) % Baso % (Auto) % Neut # (Auto) (1.8-7.7) 10^3/u L Lymph # (Auto) (0.8-4.8) 10^3/u L [place] # (Auto) (0.2-0.9) 10^3/u L Eos # (Auto) (0.0-0.8) 10^3/u L Baso # (Auto) (0.0-0.1) 10^3/u L Nucleated RBC % (a uto) % Nucleated RBCs # /100WBC Sodium (136-145) mmol/L Potassium (3.5-5.1) mmol/L Chloride (98-107) mmol/L Carbon Dioxide (22-29) mmol/L Anion Gap (5-19) BUN (8-23) mg/dL Creatinine (0.5-0.9) mg/dL GFR Calculation Glucose (65-115) mg/dL Calculated Osmolal ity (285-295) mOsm/k g Lactic Acid (0.5-2.2) mmol/L Lactic Acid (Sepsi s) 4.0 H (0.5-2.2) mmol/L Lactate 2.6 H (0.5-2.2) mmol/L Calcium (8.5-10.5) mg/dL Total Bilirubin (0.15-1.2) mg/dL AST (0-32) U/L ALT (0-33) U/L Alkaline Phosphata se (35-105) IU/L Creatine Kinase (26-192) U/L Total Protein (6.6-8.7) g/dL Albumin (3.5-5.2) g/dL Globulin (1.3-4.6) g/dL TSH (0.27-4.20) uIU/ mL Urine Color Straw (Yellow) Urine Appearance Clear (CLEAR) Urine pH 5 (5-7) Ur Specific Gravit y 1.010 (1.005-1.030) Urine Protein Neg (Negative) Urine Glucose (UA) Norm (Normal) Urine Ketones Negative (Negative) Urine Blood Neg (Negative) Urine Nitrate Negative (Negative) Urine Bilirubin Neg (Negative) Urine Urobilinogen Norm (Negative) mg/dL Ur Leukocyte Johanne ase Negative (Negative) Discharge Plan Discharge Patient Disposition: Home Clinical Impression: Injury of toe Qualifiers: Encounter type: initial encounter Laterality: left Qualified Code(s): S99.922A - Unspecified injury of left foot, initial encounter Dementia Qualifiers: Dementia type: unspecified type Dementia behavioral disturbance: without behavioral disturbance Qualified Code(s): F03.90 - Unspecified dementia without behavioral disturbance Condition: Stable Prescriptions: No Action atorvastatin 40 mg tablet 40 mg PO DAILY@ Qty: 30 RF: 3 Euthyrox 175 mcg tablet 175 mcg PO DAILY@ Qty: 30 RF: 3 memantine 10 mg tablet 10 mg PO DAILY@ Qty: 30 RF: 3 aspirin 81 mg Tablet,Delayed Release (Dr/Ec) 81 mg PO DAILY@ Qty: 30 RF: 0 metoprolol succinate 50 mg tablet extended release 24 hr 50 mg PO DAILY@2099 RF: 0 clopidogrel 75 mg tablet 75 mg PO DAILY@00 RF: 0 levetiracetam 250 mg tablet 250 mg PO BID@ RF: 0 amlodipine 10 mg tablet 10 mg PO DAILY@899 RF: 0 metformin 1,000 mg tablet 1,000 mg PO BID@ RF: 0 mirtazapine 15 mg tablet 15 mg PO BEDTIME@2099 RF: 0 losartan 100 mg tablet 100 mg PO DAILY@2099 RF: 0 Discharge Orders: Discharge ED (Routine); Ordered 02/04/21 Ordered By: Bienvenido Esquivel Referrals: Gretchen Sanon MD [Primary Care Provider] - Discharge Diet: Regular Discharge Activity: Resume usual activity Patient Instructions: Dementia (ED) Activity Restrictions/Additional Instructions: Follow-up with medical provider as directed. I placed an order with case management for patient to be referred to a scientific process operator for further outpatient evaluation of left great toe. Continue taking home medications as prescribed. Return to the ER or your medical provider if condition worsens. Please read and understand discharge instructions. Thank you for choosing [facility] for your healthcare needs today. Please realize this is an emergency room and that we are providing you with a medical screening exam and this may not be complete and all inclusive of all the testing and or work up that you may need to determine your ailment or severity of your illness. It is very important that you follow up as instructed or that you return to the Emergency Department should you have concerns or if your condition changes or worsens in any way. Sign Out Sign Out Data: Patient Sign Out occurred on 02/04/21 at 17:16. Patient's care was discussed, and care was transferred from to ADY Vasquez. Coding Level of Care Code ED Director Pediatric for Maulik Hawkins Exam Detailed
--- NOTE | 2021-02-04 10:41 | XR_ITS ---
WS: [id number] XR toe LT min 2V [id number] REASON FOR EXAM: great toe FINDINGS: No fracture is identified. There is an exostosis from the medial aspect of the base of the distal phalanx of the great toe that projects laterally and anteriorly. There are no findings of osteomyelitis identified. There is slight deformity and old organized periosteal reaction involving the base of the proximal ph alanges of the first 3 toes compatible with old healed fracture. There are symmetric narrowing of the DIP and MIP joint spaces with subchondral sclerosis. XR/XR toe LT min 2V [id number] IMPRESSION: No fracture or evidence of osteomyelitis in the distal phalanx of the great toe .
--- NOTE | 2021-02-04 10:41 | XR_ITS ---
WS: [id number] XR chest 1V portable [id number] REASON FOR EXAM: AMS FINDINGS: Mild tortuosity thoracic aorta. Normal heart size. Calcified granulomatous disease in both hemithoraces. Linear fibrotic changes in the right mid lung field. No acute pulmonary parenchymal or pleural abnormality. Changes of degenerative spondylosis in the mid and lower thoracic spine. Bony thorax otherwise intact . XR/XR chest 1V portable [id number] IMPRESSION: No acute pulmonary abnormality. The chest is unchanged compared to 08/02/2020.
--- NOTE | 2021-02-04 10:41 | CT_ITS ---
WS: [id number] CT head wo con* 35809 REASON FOR EXAM: worsening AMS IV CONTRAST ADMINISTERED: Noncontrast. TOTAL EXAM DLP: 1690.[address] scans at [facility] use at least one of these dose optimization techniques: automat ed exposure control; mA and/or kV adjustment per patient size (includes targeted exams where dose is matched to clinical indication); or iterative reconstruction. FINDINGS: No midline shift or other significant mass effect. No findings of intracranial hemorrhage and no extra-axial fluid collection. No acute focal brain parenchymal abnormality in the cerebral hemispheres, brainstem, or cerebellar he mispheres. There is low attenuation in the areas of the deep white matter compatible with chronic ischemic demye lination secondary to small vessel disease. Ventricles and CSF spaces show mild symmetric increase compatible with symmetric global atrophy. The base of the skull in the bony calvarium are intact. There is thickening of the mucosa of the ethm oid sinuses and some thickening of the mucosa in the maxillary sinuses with increased soft tissue den sity in the right maxillary sinus. These findings are compatible with chronic sinusitis. CT/CT head wo con* 91110 IMPRESSION: Changes of aging brain without acute intracranial abnormality.
[2021-02-04 12:33] LABS: Basophils % 0.3 %; Eosinophils # 0.2 10^3/uL (0.0-0.8); Eosinophils % 1.2 %; Hematocrit 41.1 % (37.0-47.0); Hemoglobin 13.5 g/dL (11.5-15.3); Lymphocytes # 2.1 10^3/uL (0.8-4.8); Lymphocytes % 16.5 %; Mean Corpuscular HGB Conc 32.8 g/dL (30.0-36.0); Mean Corpuscular Hemoglobin 30.5 pg (28.0-34.0); Mean Corpuscular Volume 92.8 fL (81-99); Mean Platelet Volume 9.4 fL (7.4-10.4); Monocytes % 7.4 %; Neutrophils # 9.62 10^3/uL (1.8-7.7); Neutrophils % 74.4 %; Nucleated Red Blood Cells % 0 %; Platelet Count 365 10^3/cmm (130-400); Red Blood Count 4.43 10^6/uL (4.1-5.3); Red Cell Distribution Width 12.5 % (12.1-15.1)
[2021-02-04 12:59] LABS: Alanine Aminotransferase 14 U/L (0-33); Albumin Level 3.8 g/dL (3.5-5.2); Alkaline Phosphatase 66 IU/L (35-105); Anion Gap 18.7 (5-19); Aspartate Amino Transferase 16 U/L (0-32); Blood Urea Nitrogen 13 mg/dL (8-23); Calcium 9.5 mg/dL (8.5-10.5); Carbon Dioxide 26 mmol/L (22-29); Chloride 95 mmol/L (98-107); Creatine Phosphokinase 33 U/L (26-192); Globulin 3.2 g/dL (1.3-4.6); Glucose 131 mg/dL (65-115); Osmolality Calculated 284 mOsm/kg (285-295); Potassium 3.7 mmol/L (3.5-5.1); Sodium 136 mmol/L (136-145); Thyroid Stimulating Hormone 2.97 uIU/mL (0.27-4.20); Total Bilirubin 0.5 mg/dL (0.15-1.2)
[2021-02-04 13:01] LABS: Add Urine Microscopic? NO; Bilirubin Urine Neg (Negative); Blood Urine Neg (Negative); Charge for UA Resulting for Rev; Glucose Urine UA Norm (Normal); Ketones Urine Negative (Negative); Leukocyte Esterase Urine Negative (Negative); Nitrate Urine Negative (Negative); Protein Urine Neg (Negative); Urine Appearance Clear (CLEAR); Urine Color Straw (Yellow); Urobilinogen Urine Norm (Negative); pH Urine 5 (5-7)
[2021-02-04 13:04] LABS: Creatinine Clr Calc Pharmacy 55.2341
[2021-02-04 13:05] LABS: Lactic Sepsis W/Reflex 4.2 mmol/L (0.5-2.2)
[2021-02-04 14:17] LABS: Reflex Lactate Order REFLEX LACTIC ORDERD
[2021-02-04] MEDS: sodium chloride 0.9% 1,000 ML 999 ML IV (14:50)
--- NOTE | 2021-02-04 17:49 | PC.NURSE ---
Critical lactic 4.0 reported to Karen GARSIA.
--- NOTE | 2021-02-04 19:15 | PC.NURSE ---
Report from LOLA Pedraza
--- NOTE | 2021-02-04 19:47 | PC.NURSE ---
Changed brief and bed linens with assistance by another RN. Placed in clean brief and clean/dry linens. Pt tolerated well. Repositioned in bed. No other needs identified at this time.
[2021-02-04 22:31] LABS: Lactate (Lactic Acid level) 2.6 mmol/L (0.5-2.2)
--- NOTE | 2021-02-04 23:35 | PC.NURSE ---
Called [facility], spoke to Nikhil, to set up transfer home, because pt has been discharged. He could not give me an estimated time of arrival to the ED. Ref ID# [id number]
[2021-02-05 01:36] VITALS: BP 124/94; PULSE 84; RESP 18; O2SAT 95
--- NOTE | 2021-02-05 08:57 | DCPLANNER ---
Addendum entered by Rupinder Raines 02/05/21 09:00: Patient needed a referral to ortho to podiatry not a soft tissue elbow injury. Original Note: financial center manager had message to schedule a follow up appointment for patient with ortho for soft tissue elbow injury. financial center manager called the ortho clinic, spoke with Gretchen, gave clinic patients information. financial center manager was told that patients information would be printed and reviewed. Clinic will call patient with appointment information.
--- NOTE | 2021-02-11 13:30 | DCPLANNER ---
Patient has a follow up appointment scheduled for Friday, February 19, 2021 at 1:00 with at [facility]. Clinic will call patient with appointment information.
--- NOTE | 2021-02-27 12:23 | DCPLANNER ---
Patient had a follow up appointment with ortho - appointment was cancelled.
== END 2021-02-05 01:39 | disposition home or self-care (01) ==
PROVIDERS: Physician Assistant; Emergency Provider Physician Assistant; PCP Family Medicine
DX: S99.922A Unspecified injury of left foot, initial encounter (principal); F03.90 Unspecified dementia, unspecified severity, without behavioral disturbance, psychotic disturbance, mood disturbance, and anxiety; I25.10 Atherosclerotic heart disease of native coronary artery without angina pectoris; E11.9 Type 2 diabetes mellitus without complications; E78.5 Hyperlipidemia, unspecified; I10 Essential (primary) hypertension; Z95.5 Presence of coronary angioplasty implant and graft; X58.XXXA Exposure to other specified factors, initial encounter; Z79.82 Long term (current) use of aspirin; Z79.84 Long term (current) use of oral hypoglycemic drugs
CPT/HCPCS: 70450; 71045; 73660; 80053; 81003; 82550; 83605; 84443; 85025; 96360; 99284; J7030